=== PATIENT | female | born 1955 | race Caucasian/White ===

== ENCOUNTER → 2017-02-14 18:09 | Outpatient (CLI) | payer OTHER ==
[2016-03-22 13:46] VITALS: BMI 28.3
[~2017-02-14 18:09] MED LIST: ASPIRIN 81 MG E81 MG PO; CARTIA XT120 MG PO; CELEXA20 MG PO; CIPRO500 MG PO; DICLOFENAC SODI50 MG PO; DOXYCYCLINE HY100 M2 PO; FAMOTIDINE10 MG PO; IMDUR30 MG PO; ISOSORBIDE MONO60 M1 PO; LEVOTHROID75 MCG PO; LOW DOSE ASPIRI81 M1 PO; MOBIC7.5 MG PO; PLAVIX75 MG PO; PRAVACHOL40 MG PO; PROTONIX40 MG PO; RELAFEN500 MG PO; ZYRTEC10 MG PO
== END | disposition home or self-care (01) ==
LOC: D.MAMMO 01-31 14:00
DX: Z12.31 Encounter for screening mammogram for malignant neoplasm of breast (principal)

== ENCOUNTER → 2017-07-10 08:16 | Outpatient (CLI) | payer OTHER ==
[~2017-07-10] VITALS: Ht 149.9 cm; Wt 60.9 kg
--- NOTE | ~2017-07-10 | HEMODYNAMI ---
PATIENT:BARNEY KAUFMAN MEDICAL RECORD: [id number] : 53 LOCATION:[facility] ADMISSION DATE: 07/10/17 Generatedon:07/10/201710:45 Patient name: BARNEY KAUFMAN Patient #: [id number] SSN: : 1955 Date of study: 07/10/2017 Page: Of Hemodynamic Procedure Report Patient Data Patient Demographics Procedure consent was obtained First Name: BARNEY Gender: Female Last Name: MANDEEP : 1955 [facility] Initial: HOLLY Age: 62 year(s) Patient #: [id number] Race: Additional ID: [id number] Contact details Address: [address] [place] [address] State: [place] City: [place] Zip code: [address] Past Medical History Allergies Allergen Reaction Date Comments Reported Sulfa drugs 03/22/2016 Other allergy 07/10/2017 Sulfa, PCN Admission Admission Data Admission Date: 07/10/2017 Admission Time: 8:16 Height (in.): 52 BSA: 1.44 (m2) Height (cm.): 132.08 BMI: 35.88 (kg/m2) Weight (lbs.): 138 Weight (kg.): 62.6 Lab Results Lab Result Date: 07/10/2017 Lab Result Time: 0:00 Biochemistry Name Units Result Min Max BUN mg/dl 22 --(----)-* 7 18 Creatinine mg/dl 0.9 --(-*--)-- 0.6 1.3 CBC Name Units Result Min Max Hemoglobin g/dl 12.1 *-(----)-- 13.5 17.5 Procedure Procedure Types Cath Procedure Diagnostic Procedure Sedation Charges [facility] w/Coronaries PCI Procedure Coronary Stent Coronary Stent Initial PTCA PTCA Additional Procedure Description Procedure Date Procedure Date: 07/10/2017 Procedure Start Time: 10:17 Procedure End Time: 10:44 Procedure Staff Name Function Brien Wayne MD Performing Physician Dewayne Gamez RN Cable Tender Claudette RAMOS Scrub Logan Lora RT Monitor Procedure Data Cath Procedure Fluoroscopy Diagnostic fluoroscopy Total fluoroscopy Time: 7.2 time: 7.2 min min Diagnostic fluoroscopy Total fluoroscopy dose: 653 dose: 653 mGy mGy Entry Location Entry Primary Successful Side Size Upsize Upsize Entry Closure Harkins ccessful Closure Location (Fr) 1 (Fr) 2 (Fr) Remarks Device Remarks Radial Right 6 Fr Manual artery Short Compression Estimated blood loss: 10 ml Diagnostic catheters Device Type Used For End Catheter Placement DIAGNOSTIC El[place] 110cm 5 Procedure Fr catheter ([id number]) Procedure Medications Medication Administration Route Dosage 0.9% NaCl I.V. 100 ml/hr Oxygen NC 2 l/min Heparin Flush Bag added to field 2 bags (1000units/500ml NS) Lidocaine 2% added to field 20 Radial Cocktail added to field 1 syringe (Verapomil 2mg/Nitro 400mcg/Heparin 1500units) Versed I.V. 1 mg Fentanyl I.V. 25 mcg Fentanyl I.V. 25 mcg Radial Cocktail I.A. 1 syringe (Verapomil 2mg/Nitro 400mcg/Heparin 1500units) Heparin Bolus I.V. 4000 units Hemodynamics Rest BSA: 1.44 (m2) HGB: 12.1 (g/dl) O2 Consumption: Estimated: 136.7 (ml/min) O2 Con sumption indexed: Estimated:94.93 (ml/min/m) Heart Rate: 73 (bpm) Pressure Samples Time Site Value (mmHg) Purpose Heart Use Rate(bpm) 10:23 LV 69/1,2 Snapshot 93 Snapshots Pre Cath Intra NCS Post Cath Vital Signs Time Heart Resp SPO2 etCO2 NIBP (mmHg) Rhythm Pain Sedation Rate (ipm) (%) (mmHg) Status Level (bpm) 9:54:43 74 18 98 31.6 128/72(109) NSR 0 (11) 10(A) , No pain 9:58:55 83 18 98 30.1 135/76(99) NSR 0 (11) 10(A) , No pain 10:03:05 77 14 96 33.9 115/70(91) NSR 0 (11) 10(A) , No pain 10:07:14 73 12 96 33.9 111/64(82) NSR 0 (11) 10(A) , No pain 10:11:22 75 12 96 35.4 109/65(92) NSR 0 (11) 10(A) , No pain 10:15:30 71 13 96 35.4 108/65(86) NSR 0 (11) 10(A) , No pain 10:19:38 74 13 96 36.2 113/62(87) NSR 0 (11) 10(A) , No pain 10:23:48 89 15 94 34.6 100/59(72) NSR 0 (11) 9(A) , No pain 10:27:56 80 13 92 37.7 107/57(81) NSR 0 (11) 9(A) , No pain 10:32:02 78 12 94 38.5 112/71(93) NSR 0 (11) 9(A) , No pain 10:36:11 86 12 95 40 118/64(102) NSR 0 (11) 10(A) , No pain 10:40:19 83 13 95 38.5 116/74(98) NSR 0 (11) 10(A) , No pain 10:44:29 80 13 95 37.7 114/63(90) NSR 0 (11) 10(A) , No pain Medications Time Medication Route Dose Verified Delivered Reason Note s Effectiveness by by 9:50:54 0.9% NaCl I.V. 100 Jonathan Jonathan Per physician ml/hr Leoncio Fang RN, RN 9:51:10 Oxygen NC 2 l/min Jonathan Jonathan Per physician Leoncio Fang RN, RN 9:51:25 Heparin Flush added 2 bags Jonathan Jonathan used for Bag to Lorigan Leoncio procedure (1000units/500ml field GUERRA RN NS) 9:51:38 Lidocaine 2% added 20ml Jonathan Jonathan for local to vial Lorigan Lorigan anesthetic field CHARLIE GUERRA 9:53:47 Radial Cocktail added 1 Jonathan Jonathan used for (Verapomil to syringe Lorigan Lorigan procedure 2mg/Nitro field GUERRA RN 400mcg/Heparin 1500units) 10:15:17 Versed I.V. 1 mg Jonathan Jonathan for sedation Leoncio Fang RN, RN 10:15:27 Fentanyl I.V. 25 mcg Jonathan Jonathan for sedation Leoncio Fang RN, RN 10:18:27 Fentanyl I.V. 25 mcg Jonathan Jonathan for sedation Leoncio Fang RN RN 10:22:41 Radial Cocktail I.A. 1 Jonathan Tesfaye for (Verapomil syringe Leoncio Wayne MD vasodilation 2mg/Nitro RN 400mcg/Heparin 1500units) 10:27:57 Heparin Bolus I.V. 4000 Jonathan Castillo for units Leoncio Fang anticoagulation RN assurance senior manager insurance Log Time Note 9:43:15 Diagnostic Cath status Elective 9:43:28 Dewayne Gamez RN sent for patient. Start room use. 9:43:35 Time tracking: Regular hours 9:43:41 Plan of Care:Hemodynamics will remain stable., Cardiac rhythm will remain stable., Comfort level will be maintained., Respiratory function will remain adequate., Patient/ family verbilizes understanding of procedure., Procedure tolerated without complication., Recovers from procedure without complications.. 9:43:48 Patient received from Pre/Post Procedure Room to CCL 2 Alert and oriented. Tansferred to table in Supine position. 9:43:49 Warm blankets applied, and césar hugger turned on for patient comfort. 9:43:49 Correct patient and procedure confirmed by team. 9:43:51 Signed procedure consent form obtained from patient. 9:47:08 Patient Height : 52 inches 9:47:14 Patient Weight : 138 lbs 9:50:54 0.9% NaCl 100 ml/hr I.V. was administered by Jonathan Fang RN; Per physician; 9:51:10 Oxygen 2 l/min NC was administered by Jonathan Fang RN; Per physician; 9:51:25 Heparin Flush Bag (1000units/500ml NS) 2 bags added to field was administered by Jonathan Fang RN; used for procedure; 9:51:38 Lidocaine 2% 20ml vial added to field was administered by Jonathan Fang RN; for local anesthetic; 9:53:37 Vital chart was started 9:53:41 ECG and BP/O2 sat monitors applied to patient. 9:53:43 Baseline sample Acquired. 9:53:47 Radial Cocktail (Verapomil 2mg/Nitro 400mcg/Heparin 1500units) 1 syringe added to field was administered by Jonathan Fang RN; used for procedure; 9:53:49 Rhythm: sinus rhythm 9:53:51 Full Disclosure recording started 9:54:01 H&P Date Dictated: 07/04/2017 Within 30 days and on chart., H&P Addendum completed by physician on day of procedure. (MUST COMPLETE FOR ALL OUTPATIENTS). 9:54:03 Pre-procedure instructions explained to patient. 9:54:05 Family in waiting room. 9:54:07 Patient NPO since Midnight. 9:54:27 Patient allergic to Other allergySulfa, PCN 9:54:33 Is the patient allergic to Iodine/contrast media? No. 9:54:34 Was the patient premedicated? Yes 9:54:38 Is patient on blood thinner?Yes 9:54:41 ACC The patient was administered the following blood thiners within the last 24 hours: ACCPlavix 9:54:43 Patient diabetic? No. 9:54:48 Snore? Yes 9:54:50 Sleep apnea? No 9:55:03 Patient pain scale 0/10 ?. 9:55:13 IV patent on arrival in left forearm with 0.9% NaCl at O. 10:06:21 Right Radial & Right Groin area was prepped with chlora-prep and draped in sterile fashion 10:06:23 Alarms reviewed by R. N. 10:06:24 Sharps counted by scrub and verified by R.N. 10:06:47 Deviated septum? No 10:06:48 Opens mouth fully? Yes 10:06:50 Sticks out tongue? Yes 10:06:51 Airway obstruction? No ? 10:08:31 Lab Result : Creatinine 0.9 mg/dl 10:08:31 Lab Result : BUN 22 mg/dl 10:08:31 Lab Result : Hemoglobin 12.1 g/dl 10:10:52 Zero performed for pressure channel P1 10:11:17 Use device set Radial Dx or PCI 10:11:20 ACIST Syringe (10810) opened to sterile field. 10:11:20 Medline Cath Pack ([id number]) opened to sterile field. 10:11:22 Bag Decanter (2002) opened to sterile field. 10:11:24 SHEATH 6FR Slender ([id number]) opened to sterile field. 10:11:38 DIAGNOSTIC WIRE .035 260cm J wire (316878) opened to sterile field. 10:11:40 ACIST Hand Control (00864) opened to sterile field. 10:11:41 ACIST Manifold (07282) opened to sterile field. 10:11:42 Tegaderm 4 x 4 (1626W) opened to sterile field. 10:11:43 MBrace Wrist Support ([id number]) opened to sterile field. 10:14:29 Physician arrived 10::30 --------ALL STOP TIME OUT------ ::30 Final Timeout: patient, procedure, and site verified with staff and physician. All members of the team are in agreement. 10::33 Right Radial & Right Groin site verified by team. 10::37 Physical assessment completed. ASA score P 2 - A patient with mild systemic disease as per Brien Wayne MD. 10::43 Sedation plan: IV Moderate Sedation Medication:Versed, Fentanyl 10:15:17 Versed 1 mg I.V. was administered by Jonathan Fang RN; for sedation; 10:15:27 Fentanyl 25 mcg I.V. was administered by Jonathan Fang RN; for sedation; 10:16:29 Procedure started. 10:17:03 Local anesthetic to right radial artery with Lidocaine 2% by Brien Wayne MD.INITIAL ACCESS ONLY 10:18:27 Fentanyl 25 mcg I.V. was administered by Jonathan Fang RN; for sedation; 10:21:49 A 6 Fr Short sheath was inserted into the Right Radial artery 10:21:57 A DIAGNOSTIC Elgin 110cm 5 Fr catheter ([id number]) was advanced over the wire and used for Procedure. 10:22:41 Radial Cocktail (Verapomil 2mg/Nitro 400mcg/Heparin 1500units) 1 syringe I.A. was administered by Brien Wayne MD; for vasodilation; 10:23:20 LV hemodynamics recorded. 10:23:22 LV gram done using MCCULLOUGH 10:23:28 EF : 60 % 10:23:45 LCA angiography performed. 10:24:20 GUIDE 6FR XBLAD 3.5 catheter ([id number]) opened to sterile field. 10:24:22 INFLATOR Merit BasixCompak (QH0843) opened to sterile field. 10:24:29 RCA angiography performed. 10:25:42 Catheter removed. 10::43 Proceeding to intervention. 10:26:07 6 Fr XBLAD 3.5 guide catheter was inserted over the wire 10:26:29 CHOICE PT Extra Support 182cm wire ([id number]) opened to sterile field. 10:27:07 CHOICE wire advanced. 10:27:26 DIAGONAL BRANCH 10:27:33 Wire advanced across lesion. 10:27:57 Heparin Bolus 4000 units I.V. was administered by Jonathan Fang RN; for anticoagulation; 10:29:03 Inflation number: 1 A EUPHORA 2.5 x 15 Balloon ([id number]) was prepped and advanced across the 1st Diag, then inflated to 17 AGUSTÍN for 0:10 (min:sec). 10:29:39 Inflation number: 2 The EUPHORA 2.5 x 15 Balloon ([id number]) was reinflated across the 1st Diag, to 17 AGUSTÍN for 0:10 (min:sec). 10:30:52 Balloon removed over the wire. 10:30:56 Wire redirected to LAD. 10:31:33 Procedure type changed to Cath procedure, Diagnostic procedure, Sedation Charges, C, C w/Coronaries, PCI procedure, Coronary Stent, Coronary Stent Initial, PTCA, PTCA Additional 10:32:24 Inflation Number: 1 A MANNY RX 3.0 x 08 stent ([id number]) was prepped and advanced across the Prox LAD. The stent was deployed at 23 AGUSTÍN for 0:10 (min:sec). 10:32:54 Wire redirected to DIAGONAL. 10:33:13 Stent catheter was removed intact over wire. 10:33:16 Balloon re-inserted over wire. 10:34:39 Inflation number: 3 The EUPHORA 2.5 x 15 Balloon ([id number]) was reinflated across the 1st Diag, to 15 AGUSTÍN for 0:10 (min:sec). 10:35:50 Balloon removed over the wire. 10:35:56 Wire removed. 10:35:56 Guide catheter removed. 10:36:27 TR BAND Standard ([id number]) opened to sterile field. 10:36:45 Sheath removed intact; hemostasis achieved with Manual Compression to the Right Radial artery. 10:38:38 Procedure ended.(Physican Out) 10:41:49 Fluoroscopy time 07.20 minutes. 10:41:58 Fluoroscopy dose: 653 mGy 10:41:58 Flurop Dose total: 653 10:42:07 Sharps counted by scrub and verified by R.N. 10:42:18 Insertion/operative site no bleeding no hematoma. 10:42:25 Post right radial artery:stable 10:42:31 Post-procedure physical assessment completed. ASA score P 2 - A patient with mild systemic disease as per Brien Wyane MD. 10:42:38 Post procedure rhythm: sinus rhythm 10:42:42 Estimated blood loss: 10 ml 10:42:47 Post procedure instruction explained to patient.Patient verbalizes understanding. 10:42:48 Patient needs reinforcement of post procedure teaching. 10:44:17 Procedure and supply charges have been captured, reviewed, submitted and are correct. 10:44:19 Vital chart was stopped 10:44:20 See physician's report for complete and final results. 10:44:22 Report given to Pre/Post Procedure Room. 10:44:25 Patient transfered to Pre/Post Procedure Room with Stretcher. 10:44:28 Procedure ended. 10:44:28 Full Disclosure recording stopped 10:44:49 End room use (Document Last) Intervention Summary Intervention Notes Time ActionType Lesion and Equipment Used Action# Pressure Duration Attributes 10:29:03 Inflate 1st Diag EUPHORA 2.5 x 1 17 00:10 balloon 15 Balloon ([id number]) 10:29:39 Reinflate 1st Diag EUPHORA 2.5 x 2 17 00:10 balloon 15 Balloon ([id number]) 10:32:24 Place stent Prox LAD MANNY RX 3.0 x 1 23 00:10 08 stent ([id number]) 10:34:39 Reinflate 1st Diag EUPHORA 2.5 x 3 15 00:10 balloon 15 Balloon ([id number]) Device Usage Item Name Manufacture Quantity Catalog Number Hospital Part Current M inimal Lot# / Charge Number Stock Stock Serial# Code ACIST Syringe Acist 1 49732 360508 130130 389270 2 0 (85456) Medical Systems Inc Medline Cath Cardinal 1 [id number] 568966 71345 316916 5 Pack Health ([id number]) Bag Decanter Microtek 1 817589 56046 236961 5 () Medical Inc. SHEATH 6FR Terumo 1 [id number] 595281 122877 375519 4 0 Slender ([id number]) DIAGNOSTIC [facility] [place] 1 213020 219678 265756 507808 3 0 WIRE .035 260cm J wire (585869) ACIST Hand Acist 1 63198 561600 106708 668500 5 Control Medical (17666) Systems Inc ACIST Manifold Acist 1 82333 473043 640789 375224 5 (68532) Medical Systems Inc Tegaderm 4 x 4 3M 1 1626W 687584 774678 936517 5 (1626W) MBrace Wrist Advanced 1 140-0250-00 786423 91458 089326 5 Support Vascular ([id number]) Dynamics DIAGNOSTIC Terumo 1 40-9203 496256 894033 936881 5 [place] 110cm 5 Fr catheter (825205) GUIDE 6FR Cardinal 1 [id number] 279659 260721 732321 1 0 XBLAD 3.5 Health catheter (54914103) INFLATOR Merit Merit 1 ZH8953 100172 852309 833775 1 5 Fiducioso Advisors (QC7072) CHOICE PT [place] 1 [id number] 760016 703136 102173 5 Extra Support Scientific 182cm wire ([id number]) EUPHORA 2.5 x Medtronic 1 [id number] 715034 116214 226162 5 15 Balloon ([id number]) MANNY RX 3.0 x Medtronic 1 [id number] 337629 2386363 382764 5 [id number] 08 stent ([id number]) TR BAND Terumo 1 [id number] 281299 214557 129313 4 0 Standard ([id number]) Signature Audit Allen Stage Time Signature Unsigned Intra-Procedure 07/10/2017 Logan Lora 10:45:09 AM RT(R) (CV) Signatures Monitor : Logan Lora RT Signature : Date : Time : [facility] [address] [place] [address]
--- NOTE | ~2017-07-10 | OP ---
PATIENT NAME: BARNEY KAUFMAN MEDICAL RECORD: [id number] :53 LOCATION:D[facility] ADMISSION DATE: SURGEON: DENIS DAVIS MD DATE OF OPERATION: 07/10/2017 PROCEDURES: 1. PTCA stent LAD. 2. PTCA LAD diagonal. 3. Left heart catheterization. 4. Selective coronary angiography. 5. Left ventriculogram. INDICATION: Angina and coronary artery disease. PROCEDURE IN DETAIL: After informed consent was obtained and after detailed explanation of risks, benefits as well as alternative therapies, the patient elected to proceed with angiogram and angioplasty. The right radial area was prepped and draped in normal sterile fashion. The right radial artery was cannulated via modified Seldinger technique with placement of 6-Stateless sheath. All catheters exchanged through this sheath. FINDINGS: Left ventriculogram was performed in standard 30-degree MCCULLOUGH view, reveals good cardiac wall motion throughout all segments. Overall ejection fraction estimated 60%. SELECTIVE CORONARY ANGIOGRAPHY: 1. Left main has no significant angiographic disease. 2. Left anterior descending has previously placed stent in the LAD and diagonal. The diagonal has 95% in-stent restenosis, the LAD 80% in-stent restenosis. 3. Left circumflex shows mild irregularities, but no flow-limiting stenosis. 4. Right coronary artery has mild irregularities, but no flow-limiting stenosis. PTCA STENT OF THE LAD: The stent used is a 3.0 x 9 mm [place]. The diagonal was addressed with a 2.5 balloon. Result was 0% residual throughout. OVERALL IMPRESSION: Successful percutaneous transluminal coronary angioplasty stent of the left anterior descending going from 80% initial stenosis to 0% residual. TRANSINT:[id number] Voice Confirmation ID: [id number] DOCUMENT ID: [id number] DENIS DAVIS MD at 1202 CC: [id number] DICTATION DATE: 07/10/17 1040 SENIOR UI DEVELOPER: 07/10/17 1105 DEP CLI 07/10/[address] [address]
[~2017-07-10 08:16] MED LIST changes: +CO Q-10200 MG PO; +NITROSTAT0.4 MG SL; +PRAVACHOL80 MG PO
[2017-07-10 08:43] VITALS: BP 114/66; Ht 149.9 cm; Wt 60.9 kg
[2017-07-10 09:39] LABS: BASOPHILS 0.6 % (0-2); EOSINOPHILS 4.3 % (0-7); HEMATOCRIT 36.7 % (36.0-48.0); HEMOGLOBIN 12.1 g/dL (12-16); IMMATURE GRANULOCYTES 0.6 % (0-5); MCH 26.8 pg (26.0-34.0); MCV 81.4 fL (80.0-100.0); MEAN PLATELET VOLUME 9.1 fL (7.4-10.4); MONOCYTES 9.6 % (2-11); NEUTROPHILS 47.9 % (40-80); PLATELET COUNT 220 10x3/uL (130-400); RBC 4.51 10x6/uL (4.00-5.40); RDW 12.8 % (11.5-14.5); WBC 6.8 10x3/uL (4.8-10.8)
[2017-07-10 09:48] LABS: ANION GAP 14.8 mmol/L (8-16); CALCIUM 9.4 mg/dL (8.5-10.1); CARBON DIOXIDE 22.8 mmol/L (21.0-32.0); CREATININE - SERUM 0.9 mg/dL (0.6-1.3); POTASSIUM - SERUM 3.6 mmol/L (3.5-5.1)
== END | disposition home or self-care (01) ==
LOC: D.CATH 08:16
PROVIDERS: Internal Medicine Interventional Cardiology
DX: I25.119 Atherosclerotic heart disease of native coronary artery with unspecified angina pectoris (principal); I10 Essential (primary) hypertension; R55 Syncope and collapse; Z01.812 Encounter for preprocedural laboratory examination

== ENCOUNTER 2017-07-13 08:11 | Emergency (ER) | payer OTHER ==
[2017-07-10 08:43] VITALS: BMI 27.1
[2017-07-13 08:48] LABS: BASOPHILS 0.4 % (0-2); EOSINOPHILS 3.9 % (0-7); HEMATOCRIT 37.6 % (36.0-48.0); HEMOGLOBIN 12.6 g/dL (12-16); IMMATURE GRANULOCYTES 0.4 % (0-5); LYMPHOCYTES 39.4 % (15-50); MCHC 33.5 g/dL (31.0-37.0); MCV 80.5 fL (80.0-100.0); MONOCYTES 9.5 % (2-11); NEUTROPHILS 46.4 % (40-80); PLATELET COUNT 226 10x3/uL (130-400); RBC 4.67 10x6/uL (4.00-5.40); RDW 12.8 % (11.5-14.5); WBC 7.4 10x3/uL (4.8-10.8)
[2017-07-13 09:25] LABS: ALBUMIN 3.6 g/dL (3.4-5.0); ALKALINE PHOSPHATASE 71 U/L (46-116); ALT (SGPT) 24 U/L (10-68); CALC OSMOLALITY 283 mosm/kg (275-300); CALCIUM 8.7 mg/dL (8.5-10.1); CARBON DIOXIDE 22.6 mmol/L (21.0-32.0); CHLORIDE - SERUM 107 mmol/L (98-107); CREATININE - SERUM 0.8 mg/dL (0.6-1.3); GLUCOSE 116 mg/dL (74-106); POTASSIUM - SERUM 3.7 mmol/L (3.5-5.1); SODIUM 141 mmol/L (136-145); UREA NITROGEN 19 mg/dL (7-18); eGFR NON AFRICAN AMERICAN 77 mL/min (90-120)
[2017-07-13 09:36] LABS: CHOL - HDL RATIO 3.4 ratio (2.3-4.1); CHOLESTEROL, TOTAL 157 mg/dL (0-200); CKMB 0.7 U/L (0.0-3.6); CREATINE KINASE 57 UL (21-215); HDL CHOLESTEROL 46 mg/dL (32-96); LDL CHOLESTEROL 82 mg/dL (0-100); LDL-HDL RATIO 1.8 ratio (1.5-3.5); TRIGLYCERIDE 147 mg/dL (30-200); TROPONIN-I < 0.017 ng/mL (0.000-0.060)
== END 2017-07-13 13:55 | disposition home or self-care (01) ==
LOC: D.ER 08:11
PROVIDERS: Emergency Medicine
DX: R07.9 Chest pain, unspecified (principal)

== ENCOUNTER 2017-08-20 21:17 | Emergency (ER) | payer OTHER ==
[2017-07-10 08:43] VITALS: BMI 27.1
[2017-08-20 21:53] LABS: APPEARANCE CLOUDY (CLEAR); BILIRUBIN NEGATIVE (NEGATIVE); COLOR YELLOW (YELLOW); GLUCOSE NEGATIVE (NEGATIVE); KETONE NEGATIVE (NEGATIVE); NITRITE POSITIVE (NEGATIVE); PROTEIN NEGATIVE (NEGATIVE); SPECIFIC GRAVITY 1.015 (1.005-1.020); UROBILINOGEN NORMAL (NORMAL)
[2017-08-20 21:56] LABS: BACTERIA MANY /hpf (NONE SEEN); WHITE CELLS - URINE 25-50 /hpf (0-5)
[2017-08-20 22:29] LABS: BASOPHILS 0.2 % (0-2); EOSINOPHILS 1.1 % (0-7); HEMATOCRIT 34.7 % (36.0-48.0); HEMOGLOBIN 11.8 g/dL (12-16); IMMATURE GRANULOCYTES 0.2 % (0-5); LYMPHOCYTES 27.1 % (15-50); MCH 27.1 pg (26.0-34.0); MCV 79.8 fL (80.0-100.0); MEAN PLATELET VOLUME 9.1 fL (7.4-10.4); MONOCYTES 11.5 % (2-11); NEUTROPHILS 59.9 % (40-80); PLATELET COUNT 206 10x3/uL (130-400); RBC 4.35 10x6/uL (4.00-5.40); RDW 13.4 % (11.5-14.5); WBC 9.4 10x3/uL (4.8-10.8)
[2017-08-20 22:40] LABS: ALBUMIN 3.6 g/dL (3.4-5.0); ANION GAP 15.7 mmol/L (8-16); BILIRUBIN - TOTAL 0.3 mg/dL (0.2-1.3); CARBON DIOXIDE 22.6 mmol/L (21.0-32.0); POTASSIUM - SERUM 3.3 mmol/L (3.5-5.1); PROTEIN - SERUM 6.8 g/dL (6.4-8.2)
== END 2017-08-20 23:00 | disposition home or self-care (01) ==
LOC: D.ER 21:17
PROVIDERS: Emergency Medicine
DX: N39.0 Urinary tract infection, site not specified (principal); I25.10 Atherosclerotic heart disease of native coronary artery without angina pectoris; E03.9 Hypothyroidism, unspecified; R00.0 Tachycardia, unspecified

== ENCOUNTER 2017-11-12 13:39 | Emergency (ER) | payer OTHER ==
[~2017-11-12] VITALS: Ht 149.9 cm; Wt 68.2 kg
[2017-11-12 13:50] VITALS: Ht 149.9 cm; Wt 68.2 kg
[2017-11-12 14:11] LABS: BASOPHILS 0.5 % (0-2); EOSINOPHILS 3.2 % (0-7); HEMATOCRIT 37.1 % (36.0-48.0); HEMOGLOBIN 12.4 g/dL (12-16); IMMATURE GRANULOCYTES 0.3 % (0-5); LYMPHOCYTES 40.3 % (15-50); MCH 26.7 pg (26.0-34.0); MCHC 33.4 g/dL (31.0-37.0); MCV 79.8 fL (80.0-100.0); MEAN PLATELET VOLUME 9.1 fL (7.4-10.4); MONOCYTES 13.4 % (2-11); NEUTROPHILS 42.3 % (40-80); PLATELET COUNT 200 10x3/uL (130-400); RBC 4.65 10x6/uL (4.00-5.40); WBC 5.9 10x3/uL (4.8-10.8)
[2017-11-12 14:14] LABS: APPEARANCE SLT CLOUDY (CLEAR); COLOR YELLOW (YELLOW); NITRITE POSITIVE (NEGATIVE); SPECIFIC GRAVITY 1.015 (1.005-1.020)
[2017-11-12 14:15] LABS: BACTERIA MANY /hpf (NONE SEEN); BILIRUBIN NEGATIVE (NEGATIVE); EPITHELIAL CELLS 0-5 /hpf (0-5); GLUCOSE NEGATIVE (NEGATIVE); KETONE NEGATIVE (NEGATIVE); PROTEIN NEGATIVE (NEGATIVE); RED CELLS - URINE 0-5 /hpf (0-5); UROBILINOGEN NORMAL (NORMAL); WHITE CELLS - URINE 0-5 /hpf (0-5)
[2017-11-12 14:25] LABS: ALBUMIN 3.6 g/dL (3.4-5.0); ALKALINE PHOSPHATASE 111 U/L (46-116); ALT (SGPT) 34 U/L (10-68); BILIRUBIN - TOTAL 0.24 mg/dL (0.2-1.3); CALC OSMOLALITY 282 mosm/kg (275-300); CALCIUM 8.9 mg/dL (8.5-10.1); CARBON DIOXIDE 26.1 mmol/L (21.0-32.0); CHLORIDE - SERUM 106 mmol/L (98-107); CREATININE - SERUM 0.7 mg/dL (0.6-1.3); GLUCOSE 147 mg/dL (74-106); POTASSIUM - SERUM 3.6 mmol/L (3.5-5.1); PROTEIN - SERUM 7.7 g/dL (6.4-8.2); SODIUM 141 mmol/L (136-145); UREA NITROGEN 11 mg/dL (7-18); eGFR NON AFRICAN AMERICAN 90 mL/min (90-120)
[2017-11-12] MEDS ORDERED: DIFLUCAN100 MG PO (16:15)
[2017-11-12 17:04] VITALS: BP 116/87
== END 2017-11-12 17:05 | disposition home or self-care (01) ==
LOC: D.ER 13:39
PROVIDERS: Family Medicine
DX: R53.81 Other malaise (principal); R53.83 Other fatigue

== ENCOUNTER → 2018-10-09 08:48 | Outpatient (CLI) | payer OTHER ==
[2017-11-12 13:50] VITALS: BMI 30.3
[~2018-10-09 08:48] MED LIST changes: +DIFLUCAN100 MG PO
--- NOTE | 2018-10-12 09:40 | ST ---
PATIENT:BARNEY KAUFMAN MEDICAL RECORD: [id number] SEX: F LOCATION:[facility] ORDER #: ADMISSION DATE: 10/09/18 AGE OF PATIENT: 63 REFERRING PHYSICIAN: INTERPRETING PHYSICIAN: DENIS DAVIS MD DATE OF SERVICE: 10/09/2018 INDICATION: Angina, coronary artery disease and hypertension. TECHNIQUE: She was exercised on standard Lexiscan protocol with 33 mCi of sestamibi injected at peak stress. A 11 mCi were used previously for rest images. FINDINGS: Gated SPECT reveals preserved ejection fraction at 74% with good wall motion and thickening and brightening throughout all segments. SPECT imaging Cardiolite was used as myocardial fusion agent. There is homogeneous uptake throughout all segments at rest and stress with no evidence of inducible ischemia or previous infarction. OVERALL IMPRESSION: 1. This is a normal nuclear stress test with no evidence of inducible ischemia or previous infarction. 2. Gated SPECT reveals a preserved ejection fraction at 74%. In this patient with ongoing symptomatology, the current scan does not suggest the presence of hemodynamically significant coronary artery disease. Evaluate noncardiac etiology of chest pain. TRANSINT:[id number] Voice Confirmation ID: [id number] DOCUMENT ID: [id number] DENIS DAVIS MD at 0940 CC: RUIZ ALMANZAR [id number] DICTATION DATE: 10/09/18 1653 COMPUTER BOOKKEEPER: 10/10/18 0409 DEP CLI 10/09/18 [facility] [address] [place] [address]
== END | disposition home or self-care (01) ==
LOC: D.HCCARDIO 08:48
PROVIDERS: ATTEND Internal Medicine Interventional Cardiology
DX: I25.10 Atherosclerotic heart disease of native coronary artery without angina pectoris (principal)

== ENCOUNTER 2018-12-09 09:11 | Emergency (ER) | payer OTHER ==
[~2018-12-09] VITALS: Ht 149.9 cm; Wt 63.6 kg
[2018-12-09 09:17] VITALS: Ht 149.9 cm; Wt 63.6 kg
[2018-12-09 09:42] LABS: BASOPHILS 0.4 % (0-2); EOSINOPHILS 3.9 % (0-7); HEMATOCRIT 37.1 % (36.0-48.0); HEMOGLOBIN 12.9 g/dL (12-16); IMMATURE GRANULOCYTES 0.3 % (0-5); LYMPHOCYTES 47.2 % (15-50); MCH 27.3 pg (26.0-34.0); MCHC 34.8 g/dL (31.0-37.0); MCV 78.4 fL (80.0-100.0); MEAN PLATELET VOLUME 8.8 fL (7.4-10.4); MONOCYTES 8.6 % (2-11); NEUTROPHILS 39.6 % (40-80); PLATELET COUNT 201 10x3/uL (130-400); RBC 4.73 10x6/uL (4.00-5.40); RDW 12.9 % (11.5-14.5)
[2018-12-09 09:54] LABS: APTT 23.6 SECONDS (22.8-39.4); INR 0.96 (0.85-1.17); PROTIME 12.3 SECONDS (11.6-15.0)
[2018-12-09 10:08] LABS: ALBUMIN 3.9 g/dL (3.4-5.0); ALKALINE PHOSPHATASE 80 U/L (46-116); ALT (SGPT) 11 U/L (10-68); BILIRUBIN - TOTAL 0.41 mg/dL (0.2-1.3); CALC OSMOLALITY 282 mosm/kg (275-300); CALCIUM 9.3 mg/dL (8.5-10.1); CARBON DIOXIDE 22.4 mmol/L (21.0-32.0); CHLORIDE - SERUM 107 mmol/L (98-107); CREATININE - SERUM 0.9 mg/dL (0.6-1.3); GLUCOSE 113 mg/dL (74-106); POTASSIUM - SERUM 3.8 mmol/L (3.5-5.1); PROTEIN - SERUM 7.2 g/dL (6.4-8.2); SODIUM 141 mmol/L (136-145); UREA NITROGEN 16 mg/dL (7-18); eGFR NON AFRICAN AMERICAN 67 mL/min (90-120)
[2018-12-09 10:19] LABS: CKMB 0.5 U/L (0.0-3.6); CREATINE KINASE 64 UL (21-215)
[2018-12-09 10:20] LABS: TROPONIN-I < 0.017 ng/mL (0.000-0.060)
[2018-12-09] MEDS ORDERED: HYDROCODONE-A1 UDTA2 PO (11:25)
[2018-12-09 11:51] VITALS: BP 117/60
== END 2018-12-09 11:53 | disposition home or self-care (01) ==
LOC: D.ER 09:11
PROVIDERS: Emergency Medicine
DX: R07.89 Other chest pain (principal); R09.1 Pleurisy

== ENCOUNTER 2019-09-10 12:31 | Observation (INO) | payer MEDICARE ==
[~2019-09-10] VITALS: Ht 149.9 cm; Wt 60.5 kg
--- NOTE | ~2019-09-10 | EC ---
PATIENT:BARNEY KAUFMAN DATE OF SERVICE: 09/10/19 SEX: F MEDICAL RECORD: [id number] DATE OF : 53 LOCATION:D.M2 D.211 AGE OF PATIENT: 64 ADMISSION DATE: 09/10/19 REFERRING PHYSICIAN: INTERPRETING PHYSICIAN: SIMÓN JUAREZ MD ECHOCARDIOGRAM REPORT ECHO CHARGES 4 ECHO COMPLETE Date: 09/11/19 CLINICAL DIAGNOSIS: DYSPNEA/CAD ECHOCARDIOGRAPHIC MEASUREMENTS (adult normal given) AC root (d.<3.7cm) 2.6 cm LV Septum d (<1.2 cm> 1.1 cm Valve Excursion 1.5 cm LV Septum (systole) 1.2 cm Left Atria (s.<4.0cm> 3.2 cm LVPW d(<1.2cm) 1.2 cm RV (d.<2.3cm) 2.6 cm LVPW (sytole) 1.3 cm LV diastole(<5.6CM) 4.9 cm MV E-F(>70mm/sec) cm LV systole 3.4 cm LVOT Diameter 1.4 cm MV exc.(>10mm) 1.4 cm Est.ejection fraction (50-75%) % DOPPLER: LVIT cm/sec A 73.0 cm/sec E 54.0 cm/sec LA cm/sec RVSP 33 mmHg LVOT 76 cm/sec AOP1/2T m/s Asc. Ao 115 cm/sec RVOT 49 cm/sec RA cm/sec PA 108 cm/sec AV Gradient Peak 5.33 mmHg AV Mean 2.58 mmHg AV Area 1.5 cm MV Gradient Peak 3.23 mmHg MV Mean 1.39 mmHg MV Area cm COMMENTS: Textile Conversion Manager: 2 LEANDRA YLLES Making Machine Catcher: 3 Dr. Zee TAPE# PACS Pericardial Effusion N DATE OF SERVICE: Adequate 2D, color flow imaging, spectral Doppler, and M-Mode No LVH. LV internal dimension is normal. Wall motion is normal. EF is greater than or equal to 55%. Aortic valve is tricuspid. No evidence of stenosis by Doppler interrogation. Left atrium is normal. Mitral valve shows no prolapse. Trace MR. Right-sided chambers are grossly normal. Trace TR. TRANSINT:[id number] Voice Confirmation ID: [id number] DOCUMENT ID: [id number] ECHOCARDIOGRAM REPORT [id number] BARNEY KAUFMAN GREGORY A MD CC: [id number] DICTATION DATE: 09/12/19 0845 STRAIGHT KNIFE CUTTER MACHINE: 09/12/19 1519 DIS IN 09/11/19 [place] [id number] [place] [address]
--- NOTE | ~2019-09-10 | HEMODYNAMI ---
PATIENT:BARNEY KAUFMAN MEDICAL RECORD: [id number] : 53 LOCATION:[facility] D.2115 ADMISSION DATE: 09/10/19 Generatedon:09/11/201911:33 Patient name: BARNEY KAUFMAN Patient #: [id number] SSN: [id number] : 1955 Date of study: 09/11/2019 Page: Of Hemodynamic Procedure Report Patient Data Patient Demographics Procedure consent was obtained First Name: BARNEY Gender: Female Last Name: MANDEEP : 1955 [facility] Initial: HOLLY Age: 64 year(s) Patient #: [id number] Race: SSN: [id number] Additional ID: [id number] Contact details [address]: [address] [place] [address] State: [place] City: [place] Zip code: [address] Past Medical History Allergies Allergen Reaction Date Comments Reported Sulfa drugs 03/22/2016 Other allergy 07/10/2017 Sulfa, PCN Other allergy 09/11/2019 PCN, SULFA, BACTRIM, CIPRO Admission Admission Data Admission Date: 09/10/2019 Admission Time: 12:39 Arrival Date: 09/11/2019 Arrival Time: 0:00 Admit Source: Other Insurance Payor: Medicare Room #: D.2115 [facility] #: [id number] Height (in.): 59 BSA: 1.11 (m2) Height (cm.): 149.86 BMI: 12.21 (kg/m2) Weight (lbs.): 60.45 Weight (kg.): 27.42 Lab Results Lab Result Date: 09/11/2019 Lab Result Time: 0:00 Biochemistry Name Units Result Min Max BUN mg/dl 12 --(-*--)-- 7 18 CK-MB ng/ml 0.7 --(*---)-- 0 3.6 Creatinine mg/dl 0.8 --(-*--)-- 0.6 1.3 eGFR ml/min 76.99786 *-(----)-- 90 120 NONAFRICAN Troponin l ng/ml 0.017 --(-*--)-- 0 0.06 CBC Name Units Result Min Max Hematocrit % 41.2 -*(----)-- 42 54 Hemoglobin g/dl 13.5 --(*---)-- 13.5 17.5 Procedure Procedure Types Cath Procedure Diagnostic Procedure [facility] w/Coronaries Sedation Charges Moderate Sedation up to 15 minutes PCI Procedure Coronary Stent Coronary Stent Initial Hemochron ACT Test Procedure Description Procedure Date Procedure Date: 09/11/2019 Procedure Start Time: 11:12 Procedure End Time: 11:29 Procedure Staff Name Function Edouard Ulloa MD Performing Physician Bonnie Mitchell RT Monitor Claudette Norwood RT Scrub Jesse Malone RN Nurse Procedure Data Cath Procedure Fluoroscopy Diagnostic fluoroscopy Total fluoroscopy Time: 2.9 time: 2.9 min min Diagnostic fluoroscopy Total fluoroscopy dose: 284 dose: 284 mGy mGy Contrast Material Contrast Material Type Amount (ml) Isovue 370 76 Entry Location Entry Primary Successful Side Size Upsize Upsize Entry Closure Succes sful Closure Location (Fr) 1 (Fr) 2 (Fr) Remarks Device Remarks Femoral Right 5 Fr 6 Fr Exoseal artery Short Estimated blood loss: 10 ml Diagnostic catheters Device Type Used For End Catheter Placement MULTIPACK JL 4.0 5Fr Procedure catheter MULTIPACK 3DRC 5Fr Procedure catheter MULTIPACK Pigtail 5 Fr Procedure catheter Procedure Complications No complications Procedure Medications Medication Administration Route Dosage Oxygen etCO2 Nasal cannula 2 l/min Lidocaine 2% added to field 20 Heparin Flush Bag added to field 2 bags (1000units/500ml NS) 0.9% NaCl I.V. 100 ml/hr Versed I.V. 1 mg Fentanyl I.V. 50 mcg Heparin Bolus I.V. 4000 units Atropine I.V. 0.5 mg Hemodynamics Rest BSA: 1.11 (m2) HGB: 13.5 (g/dl) O2 Consumption: Estimated: 103.39 (ml/min) O2 Co nsumption indexed: Estimated:93.14 (ml/min/m) Heart Rate: 69 (bpm) Pressure Samples Time Site Value (mmHg) Purpose Heart Use Rate(bpm) 11:18 LV 112/-10,19 Snapshot 79 11:18 AO 122/64(91) Pullback 77 11:18 LV 113/9,20 Pullback 77 Gradients Valve Time Site 1 Site 2 Mean SEP/DFP Peak To Heart Use (mmHg) (sec/min) Peak Rate (mmHg) (bpm) Aortic 11:18 LV AO 0 12 0 77 113/9,20 122/64(91) Calculations Valve P-P Mean Valve Index Valve Source Name Gradient Area Flow (cm2) Aortic 0 0 0 0 Snapshots Pre Cath Intra NCS Post Cath Vital Signs Time Heart Resp SPO2 etCO2 NIBP (mmHg) Rhythm Pain Sedation Rate (ipm) (%) (mmHg) Status Level (bpm) 11:04:00 69 22 99 27 No Cuff NSR 0 (11) 10(A) , No pain 11:05:00 74 15 95 24.7 115/60(0) NSR 0 (11) 10(A) , No pain 11:10:40 78 16 94 30 124/66(91) NSR 0 (11) 9(A) , No pain 11:15:50 79 14 96 31.5 110/60(79) NSR 0 (11) 9(A) , No pain 11:20:15 53 36 100 15 67/36(54) NSR 0 (11) 9(A) , No pain 11:26:13 91 13 94 0 141/80(111) NSR 0 (11) 9(A) , No pain 11:30:27 92 11 96 28.5 116/70(95) NSR 0 (11) 10(A) , No pain Medications Time Medication Route Dose Verified Delivered Reason Notes Effectiveness by by 11:04:32 Oxygen etCO2 2 Edouard Molina used for Nasal l/min St Felipe Malone RN procedure cannula 11:04:40 Lidocaine 2% added 20ml Edouard Nunn for local to vial [facility] anesthetic field MD DANGELO 11:04:46 Heparin Flush added 2 Edouard Nunn used for Bag to bags [facility] procedure (1000units/500ml field MD DANGELO NS) 11:04:55 0.9% NaCl I.V. 100 Edouard Molina Per physician ml/hr St Felipe Malone RN, MD 11:07:05 Versed I.V. 1 mg Edouard Molina for sedation St Felipe Malone RN, MD 11:07:10 Fentanyl I.V. 50 Edouard Molina for sedation mcg St Felipe Malone RN, MD 11:21:08 Heparin Bolus I.V. 4000 Edouard Molina for verif ied units St Felipe Malone RN anticoagulation with dr MD noel 11:22:57 Atropine I.V. 0.5 Edouard Molina For bradycardia mg St Felipe Malone RN, MD Procedure Log Time Note 10:33:18 Informed consent obtained and on chart 10:34:15 Lab Result : Troponin l 0.017 ng/ml 10:34:15 Lab Result : eGFR NONAFRICAN 76.26944 ml/min 10:34:15 Lab Result : CK-MB 0.7 ng/ml 10:34:15 Lab Result : BUN 12 mg/dl 10:34:15 Lab Result : Creatinine 0.8 mg/dl 10:34:15 Lab Result : Hematocrit 41.2 % 10:34:15 Lab Result : Hemoglobin 13.5 g/dl 10:34:19 Arrival Date: 09/11/2019 12:00:00 AM 10:34:20 Admit Source: Other 10:34:28 Insurance Payor : Medicare 10:34:46 Patient Height : 59 inches 10:34:53 Patient Weight : 60.45 lbs 10:36:06 ACC Patient presents with Stable Angina CCS Anginal Class 2--Slight limitation of ordinary activity. 10:36:12 Procedure Status Urgent Heart Cath (IP). 10:36:14 Time tracking: Regular hours (M-F 7:00 - 5:00) 10:36:19 Plan of Care:Hemodynamics will remain stable., Cardiac rhythm will remain stable., Comfort level will be maintained., Respiratory function will remain adequate., Patient/ family verbilizes understanding of procedure., Procedure tolerated without complication., Recovers from procedure without complications.. 10:36:32 H&P Date Dictated: 09/10/2019 Within 30 days and on chart.. 10:36:33 Pre-procedure instructions explained to patient. 10:36:33 Pre-op teaching completed and patient verbalized understanding. 10:36:35 Family unavailable. 10:36:37 Patient NPO since Midnight. 10:37:09 Patient allergic to Other allergyPCN, SULFA, BACTRIM, CIPRO 10:37:18 Lab results completed and on chart. 10:37:21 Stress Test: no; N/A ? 10:37:23 Alarms reviewed by R. N. 10:37:23 Sharps counted by scrub and verified by R.N. 10:38:05 Diagnostic Cath Status : Urgent 10:39:42 Risk of Mortality: 2.1 10:39:45 Risk of blood transfusion: 2.4 10:39:48 Risk of CASSANDRA: 2.3 10:44:11 Claudette Norwood RT(R) sent for patient. Start room use. 10:49:55 Patient received from Med II to CCL 1 Alert and oriented. Tansferred to table in Supine position. 10:50:07 Warm blankets applied, and césar hugger turned on for patient comfort. 10:50:07 Correct patient and procedure confirmed by team. 10:50:08 ECG and BP/O2 sat monitors applied to patient. 10:50:14 Was the patient premedicated? No 10:50:16 Is the patient allergic to Iodine/contrast media? No. 10:50:18 Is patient on blood thinner?Yes 10:51:28 ACC The patient was administered the following blood thiners within the last 24 hours: ACCPlavix 10:51:31 Patient diabetic? No. 10:51:34 If diabetic: On Metformin? N/A 10:51:39 Patient not . Patient is over age 55. 10:51:40 ----Pre-sedation anethsthesia assessment.---- 10:51:45 Previous problem with sedation/anesthesia? No ? 11:03:06 Snore? Yes 11:03:08 Sleep apnea? Unknown 11:03:09 Deviated septum? No 11:03:10 Opens mouth fully? Yes 11:03:11 Vital chart was started 11:03:11 Sticks out tongue? Yes 11:03:14 Airway obstruction? No ? 11:03:16 Dentures? No ? 11:03:20 Pre procedure: right dorsailis pedis pulse 1+ Palpable, but thready & weak; easily obliterated 11:03:22 Modified Leo's test Ulnar > 7 seconds. 11:03:24 Patient pain scale 0/10 ?. 11:03:34 IV patent on arrival in left antecubital with 0.9% NaCl at KVO. 11:03:40 Right groin area was prepped with chlora-prep and draped in sterile fashion 11:03:59 Baseline sample Acquired. 11:04:01 Full Disclosure recording started 11:04:06 Rhythm: sinus rhythm 11:04:14 Use device set Femoral Dx 11:04:16 ACIST Syringe (99868) opened to sterile field. 11:04:16 Bag Decanter (2002S) opened to sterile field. 11:04:17 Medline Cath Pack ([id number]) opened to sterile field. 11:04:18 ACIST Hand Control (78963) opened to sterile field. 11:04:19 ACIST Manifold (36767) opened to sterile field. 11:04:19 DIAGNOSTIC Multipack 5Fr catheter set ([id number]) opened to sterile field. 11:04:21 SHEATH 5FR [place] (YEL493) opened to sterile field. 11:04:21 EMERALD Guide Wire (514-732) opened to sterile field. 11:04:32 Oxygen 2 l/min etCO2 Nasal cannula was administered by eJsse Malone RN; used for procedure; Verbal order read back and verified. 11:04:40 Lidocaine 2% 20ml vial added to field was administered by Edouard Ulloa MD; for local anesthetic; Verbal order read back and verified. 11:04:46 Heparin Flush Bag (1000units/500ml NS) 2 bags added to field was administered by Edouard Ulloa MD; used for procedure; Verbal order read back and verified. 11:04:55 0.9% NaCl 100 ml/hr I.V. was administered by Jesse Malone RN; Per physician; Verbal order read back and verified. 11:05:43 --------ALL STOP TIME OUT------ 11:05:43 Final Timeout: patient, procedure, and site verified with staff and physician. All members of the team are in agreement. 11:05:45 Right groin site verified by team. 11:05:49 Fire Safety Assessment: A--An alcohol-based skin anteseptic being used preoperatively., C--Open oxygen or nitrous oxide is being used., D--An ESU, laser, or fiber-optic light is being used. 11:05:52 Physical assessment completed. ASA score P 2 - A patient with mild systemic disease as per Edouard Ulloa MD. 11:05:55 2) 60-89 Mildly reduced kidney function, and other findings (as for stage 1) point to kidney disease. 11:05:59 Maximum allowable contrast dose (3.7 X eGFR X 0.75)211 ml. 11:06:03 Sedation plan: IV Moderate Sedation Medication:Versed, Fentanyl 11:07:05 Versed 1 mg I.V. was administered by Jesse Malone RN; for sedation; Verbal order read back and verified. 11:07:10 Fentanyl 50 mcg I.V. was administered by Jesse Malone RN; for sedation; Verbal order read back and verified. 11:10:12 CALLED FAMILY TO NOTIFY OF START OF PROCEDURE X2 UNSUCCESSFUL. 11:11:17 Procedure started. 11:12:22 Attempted to call emergency contact Fatuma, no answer. 11:12:25 Local anesthetic to right femoral artery with Lidocaine 2% by Edouard Ulloa MD.INITIAL ACCESS ONLY 11:13:29 A 5 Fr sheath was inserted into the Right Femoral artery 11:14:35 A MULTIPACK JL 4.0 5Fr catheter was advanced over the wire and used for Procedure. 11:14:39 LCA angiography performed. 11:14:42 Injector settings: Ml/sec: 3, Volume: 6, 11:15:30 Catheter removed. 11:15:36 A MULTIPACK 3DRC 5Fr catheter was advanced over the wire and used for Procedure. 11:16:19 Injector settings: Ml/sec: 3, Volume: 6, 11:16:48 ACCDominant side:Right 11:16:50 Catheter removed. 11:16:58 A MULTIPACK Pigtail 5 Fr catheter was advanced over the wire and used for Procedure. 11:17:31 LV gram done using MCCULLOUGH 11:18:04 LV hemodynamics recorded. 11:18:14 EF : 55 % 11:18:31 Catheter removed. 11:18:32 Proceeding to intervention. 11:18:[address] PCI 11:18:41 INFLATOR Merit BasixCompak (PU8023) opened to sterile field. 11:18:42 WHISPER 300cm guide wire ([id number]) opened to sterile field. 11:18:47 GUIDE 6FR XBLAD 3.5 catheter ([id number]) opened to sterile field. 11:18:50 SHEATH 6FR [place] (IFY368) opened to sterile field. 11:18:58 Sheath upsized to a 6 Fr Short. 11:19:13 6 Fr XBLAD 3.5 guide catheter was inserted over the wire 11:21:08 Heparin Bolus 4000 units I.V. was administered by Jesse Malone RN; for anticoagulation; verified with dr noel Verbal order read back and verified. 11:21:53 Pre PCI Site: [place] LAD has 80% stenosis. 11:22:16 WHISPER 300 wire advanced. 11:22:57 Atropine 0.5 mg I.V. was administered by Jesse Malone RN; For bradycardia; Verbal order read back and verified. 11:24:18 Wire advanced across lesion. 11:24:55 Place stent Inflation Number: 1 A MANNY OTW 2.5 x 15 stent ([id number]) was prepped and advanced across the Mid LAD 80. The stent was deployed at 14 AGUSTÍN for 0:00 (min:sec) . 11:25:52 Stent catheter was removed intact over wire. 11:25:52 Wire removed. 11:25:53 Guide catheter removed. 11:25:55 EXOSEAL 6Fr (EX600) opened to sterile field. 11:26:07 Sheath removed intact; hemostasis achieved with Exoseal to the Right Femoral artery. 11:26:13 Fluoroscopy time 02.90 minutes. 11:26:20 Fluoroscopy dose: 284 mGy 11::26 Dose Area Product 15722 mGy/cm. 11:26:41 Flurop Dose total: 284 11:26:44 Procedure ended.(Physican Out) 11:27:26 Contrast amount:Isovue 370 76ml. 11:27:29 Maximum allowable dose exceeded? No. 11::29 Sharps counted by scrub and verified by R.N. 11:27:33 Post-op/insertion site Right Femoral artery dressed using a 4 x 4 and Tegaderm. 11:27:36 Post Procedure Pulses reassessed and unchanged 11:27:39 Post procedure: right dorsailis pedis pulse 1+ Palpable, but thready & weak; easily obliterated. 11:27:42 Post-procedure physical assessment completed. ASA score P 2 - A patient with mild systemic disease as per Edouard Ulloa MD. 11:27:45 Post procedure rhythm: unchanged. 11:27:47 Estimated blood loss: 10 ml 11:27:49 Post procedure instruction explained to patient.Patient verbalizes understanding. 11:27:49 Patient needs reinforcement of post procedure teaching. 11:28:22 Procedure type changed to Cath procedure, Diagnostic procedure, LHC, [facility] w/Coronaries, Sedation Charges, Moderate Sedation up to 15 minutes, PCI procedure, Coronary Stent, Coronary Stent Initial, Hemochron ACT Test 11:29:22 Procedure and supply charges have been captured, reviewed, submitted and are correct. 11:29:32 Procedure Complication : No complications 11::33 Vital chart was stopped 11::36 [facility] Findings: MVD- PCI performed (see procedure note) 11:29:39 Operative report dictated upon procedure completion. 11::40 See physician's report for complete and final results. 11::42 Report given to [facility]. 11:29:45 Patient transfered to [facility] II with Bed. 11:29:48 Procedure ended. 11:29:48 Full Disclosure recording stopped 11:29:59 ACC-PCI Only Patient was given prescriptions, or instructed by Edouard Ulloa MD to start/continue the following medications upon discharge: Plavix 11:30:00 End room use (Document Last) 11:30:16 End room use (Document Last) 11:30:42 End room use (Document Last) 11:31:03 ACT drawn and resulted at 229 seconds. (normal therapeutic range 180-240 seconds). Intervention Summary Intervention Notes Time ActionType Lesion and Equipment Action# Pressure Duration Attributes Used 11:24:55 Place stent Mid LAD MANNY OTW 2.5 1 14 00:00 x 15 stent ([id number]) Device Usage Item Name Manufacture Quantity Catalog Hospital Part Current Minim al Lot# / Number Charge Number Stock Stock Serial# Code ACIST Syringe Acist 1 16768 030783 150612 913583 20 (17567) Medical Systems Inc Bag Decanter Microtek 1 933602 83352 652989 5 () Medical Inc. Medline Cath Medline 1 [id number] 144202 05147 963516 5 Pack ([id number]) ACIST Hand Acist 1 81805 330457 957153 905224 5 Control Medical (47648) Systems Inc ACIST Acist 1 61764 032860 047036 675449 5 Manifold Medical (40117) Systems Inc DIAGNOSTIC Cardinal 1 SK2853 460211 41555 420139 30 Multipack 5Fr Health catheter set (SC9413) SHEATH 5FR Terumo 1 VSV900 087317 647774 413407 5 [place] (FFO275) EMERALD Guide Cardinal 1 502-455 740362 678522 868522 5 Wire Health (502-455) MULTIPACK JL Cardinal 1 426121 5 4.0 5Fr Health catheter MULTIPACK Cardinal 1 499869 5 3DRC 5Fr Health catheter MULTIPACK Cardinal 1 997315 5 Pigtail 5 Fr Health catheter INFLATOR Merit 1 RW6622 869288 454623 479743 15 [facility] Medical BasixCompak (LJ1473) WHISPER 300cm Manuel 1 [id number] 706929 945839 851778 5 guide wire Vascular ([id number]) GUIDE 6FR Cardinal 1 [id number] 216884 909417 561742 10 XBLAD 3.5 Health catheter ([id number]) SHEATH 6FR Terumo 1 RPK099 503306 580031 812096 40 [place] (ITG145) MANNY OTW 2.5 Medtronic 1 [id number] 359904 37621 365875 5 [id number] x 15 stent ([id number]) EXOSEAL 6Fr Cardinal 1 EX600 591513 415772 643202 10 (EX600) Health Signature Audit [place] Stage Time Signature Unsigned Intra-Procedure 09/11/2019 Bonnie Mitchell 11:30:16 AM RT(R) Intra-Procedure 09/11/2019 Jesse Malone RN 11:30:42 AM Intra-Procedure 09/11/2019 Edouard Townsned 11:33:18 AM Felipe DANGELO [place] [id number] [place] [address]
[~2019-09-10 12:31] MED LIST changes: +HYDROCODONE-A1 UDTA2 PO
[2019-09-10] MEDS ORDERED: CALAN SR120 MG PO (12:54)
[2019-09-10] MEDS ORDERED: BAYER CHEWABLE81 MG PO (12:57)
[2019-09-10] MEDS ORDERED: TOPAMAX50 MG PO (12:57)
[2019-09-10 13:31] LABS: BASOPHILS 0.4 % (0-2); HEMATOCRIT 41.2 % (36.0-48.0); HEMOGLOBIN 13.5 g/dL (12-16); IMMATURE GRANULOCYTES 0.5 % (0-5); LYMPHOCYTES 43.7 % (15-50); MCH 26.4 pg (26.0-34.0); MCHC 32.8 g/dL (31.0-37.0); MCV 80.6 fL (80.0-100.0); MEAN PLATELET VOLUME 8.7 fL (7.4-10.4); MONOCYTES 7.9 % (2-11); NEUTROPHILS 43.5 % (40-80); RBC 5.11 10x6/uL (4.00-5.40); RDW 13.2 % (11.5-14.5); WBC 7.3 10x3/uL (4.8-10.8)
[2019-09-10 13:32] LABS: CALC OSMOLALITY 278 mosm/kg (275-300); CALCIUM 9.6 mg/dL (8.5-10.1); CHLORIDE - SERUM 105 mmol/L (98-107); CREATININE - SERUM 0.8 mg/dL (0.6-1.3); GLUCOSE 105 mg/dL (74-106); POTASSIUM - SERUM 3.8 mmol/L (3.5-5.1); SODIUM 140 mmol/L (136-145); UREA NITROGEN 12 mg/dL (7-18); eGFR NON AFRICAN AMERICAN 76 mL/min (90-120)
[2019-09-10 13:34] LABS: PLATELET COUNT 266 10x3/uL (130-400)
[2019-09-10 13:46] VITALS: BP 111/69; BMI 26.9
[2019-09-10 13:48] LABS: CKMB 0.7 U/L (0.0-3.6); CREATINE KINASE 49 UL (21-215); TROPONIN-I < 0.017 ng/mL (0.000-0.060)
--- NOTE | 2019-09-10 14:51 | NUR ---
IV STARTED TO LEFT FA WITH 22 GAUGE CATH X 1 STICK AND FLUSHED WITH NS. LINE IS PATENT.
[2019-09-10 15:07] VITALS: Ht 149.9 cm; Wt 60.5 kg
[2019-09-10 15:31] LABS: CHOL - HDL RATIO 3.8 ratio (2.3-4.1); LDL-HDL RATIO 1.6 ratio (1.5-3.5)
[2019-09-10 16:52] VITALS: BP 114/68
--- NOTE | 2019-09-10 17:13 | HP ---
PATIENT: BARNEY KAUFMAN MEDICAL RECORD: [id number] ACCOUNT: [id number] LOCATION:[facility].2115 : 53 ADMISSION DATE: 09/10/19 PCP: RUIZ ALMANZAR MD HISTORY AND PHYSICAL EXAMINATION REASON FOR ADMISSION: Chest pain. HISTORY OF PRESENT ILLNESS: The patient is a 64-year-old female with previous history of coronary artery disease. She had a LAD and left circumflex PTCA [place] [address] Wayne. She had a normal stress test at that time. The patient presented same for the last month, she has had exertional and rest chest discomfort. She is scheduled to see one of the knife setter assembler, but symptoms became worse and presented to my office today. She said over the last 2 weeks, she has had 3 severe episodes of rest and exertional chest pain and while walking 2 days ago, the pain radiated into to both sides of her neck and both arms. Last evening, she developed chest pain after her meal, took a nitro and went to bed, praying she would wake up this morning. She said the pain was severe, substernal, radiating in the neck bilaterally, both arms, to the elbow with nausea and shortness of breath and diaphoresis. She has been fatigued and feels similarly she has previously when she has had stents placed. PAST MEDICAL HISTORY: Essential hypertension, CAD with 7 stents, she states. History of remote seizure disorder, hyperlipidemia, pyelonephritis, chronic anxiety, depression, osteoarthritis, diabetes mellitus type 2, hypothyroidism, migraine headaches. PAST SURGICAL HISTORY: PTCA multiple vessels last LAD and circumflex in 2019, repair of an incarcerated inguinal hernia, TAHBSO. FAMILY HISTORY: Father at 87, had CAD, hyperlipidemia, diabetes and of an MA. Mother at 65 of cancer of the colon, CAD, hyperlipidemia, diabetes, and MA. Sister at 48, CAD and MA. Mother at 45, cancer, small lung cell type. SOCIAL HISTORY: She is . She is a former smoker. Does not drink alcohol. 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 Currently is on furlough. HOME MEDICATIONS: Levothyroxine 75 mcg p.o. q.a.m. a.c., nitroglycerin 0.4 mg sublingual p.r.n. chest pain, Isordil ER 30 mg p.o. daily, pravastatin 80 mg at bedtime, metformin ER 500 mg at bedtime, verapamil ER 120 mg tablet by mouth daily, meclizine 25 mg t.i.d. p.r.n. dizziness, nabumetone 500 mg p.o. b.i.d. p.c., citalopram 40 mg a day, clopidogrel 75 mg a day, aspirin 81 mg a day, Topamax 25 mg 2 tabs by mouth nightly. ALLERGIES: BACTRIM, BACTROBAN AND CIPROFLOXACIN. REVIEW OF SYSTEMS: CONSTITUTIONAL: Fatigue without fever recently. HEENT: No recent visual change, sinus congestion, sore throat or headache. RESPIRATORY: Mild shortness of breath on exertion. No cough, sputum production. CARDIAC: Exertional and rest, substernal chest pain radiating to neck and arms as mentioned, worse in the last 2 weeks, 3 episodes. GASTROINTESTINAL: No nausea, vomiting, change in stools, blood per rectum or HISTORY AND PHYSICAL [id number] BARNEY KAUFMAN dyspepsia. GENITOURINARY: No dysuria or incontinence. GYNECOLOGIC: No vaginal bleeding. ENDOCRINE: Denies polyuria, polydipsia, heat or cold intolerance. NEUROLOGIC: No history of stroke, TIA, or vascular headaches. Recently, she has had no seizures. PSYCHIATRIC: Admits to chronically depressed mood. PHYSICAL EXAMINATION: GENERAL: The patient is alert and oriented, in no acute distress. Has minimal dull aching chest pain currently. VITAL SIGNS: Show temperature of 98.6, blood pressure 132/60, heart rate 80 and regular. Height is 5 feet, weight 133.8 pounds, BMI is 26.1. HEENT: Her eyes are clear and nonicteric. Oropharynx unremarkable. NECK: Supple, without bruits, masses or JVD. CHEST: Chest wall nontender. Chest clear. HEART: Regular without murmur. ABDOMEN: Nontender throughout. EXTREMITIES: No gross edema. NEUROLOGICAL: Oriented to person, place, and time. Cranial nerves intact. Gait is normal. LABORATORY DATA: EKG shows sinus rhythm. Labs are currently pending. ASSESSMENT: 1. Exertional rest chest pain suggesting angina. 2. Prior history of multiple PTCAs for LAD and circumflex disease. Last intervention in 2018 with negative stress test. 3. Strong family history of heart disease. 4. Hypertension, hyperlipidemia, type 2 diabetes mellitus, depression, remote seizure. PLAN: The patient will be directly admitted to the observation for serial cardiac enzymes and cardiology consultation. TRANSINT:[id number] Voice Confirmation ID: [id number] DOCUMENT ID: [id number] RUIZ ALMANZAR MD at 1713 CC: [id number] DICTATION DATE: 09/10/19 1343 PLASTER MECHANIC: 09/10/19 1439 ADM IN [place] [id number] [place] [id number]
[2019-09-10 20:00] VITALS: BP 103/63
--- NOTE | 2019-09-10 20:31 | NUR ---
EVENING ROUNDS COMPLETE. PT SITTING UP IN BED. NO SIGNS OF DISTRESS. PT DENIES ANY PAIN OR NEEDS AT THIS TIME. CL IN REACH, BED IN LOWEST POSITION.
[2019-09-11] VITALS: BP 104/62
[2019-09-11 04:00] VITALS: BP 111/61
[2019-09-11 09:35] VITALS: BP 103/61
--- NOTE | 2019-09-11 10:52 | NUR ---
PRE-OPS GIVEN. TO PROCUREMENT TECHNICIAN BY BED.
--- NOTE | 2019-09-11 11:53 | NUR ---
BACK FROM BAIL ATTACHER. VS WNL. RIGHT GROIN STABLE WITHOUT BLEEDING OR HEMATOMA NOTED. WILL MONITOR.
[2019-09-11 13:47] VITALS: BP 112/60
--- NOTE | 2019-09-11 15:27 | NUR ---
BED REST UP. GROIN STABLE.
--- NOTE | 2019-09-11 16:04 | NUR ---
IV AND TELEMETRY DCD. DC PLANS GIVEN. UNDERSTANDING VOICED. ESCORTED TO CAR BY W/C.
--- NOTE | 2019-09-12 14:44 | OP ---
PATIENT NAME: BARNEY KAUFMAN MEDICAL RECORD: [id number] :53 LOCATION:D.M2 D.2115 ADMISSION DATE:09/10/19 SURGEON: SIMÓN JUAREZ MD DATE OF OPERATION: 09/11/2019 PROCEDURE: Left heart catheterization, selective coronary angiography, right femoral artery approach. CATHETERS: A 5-[place] sheath, 5/4 left and right Can, 5/4 pig. The procedure was well tolerated. The patient was returned to campos. Sheath was removed. ExoSeal device placed. FINDINGS: Left ventriculography in 30-degree MCCULLOUGH view: Normal wall motion. Normal systolic function. CORONARY ANATOMY: LEFT MAIN: Left main is free of disease. LAD: At the end of the stent, shows end-stent restenosis about 80%. Diagonal itself previously stented appears patent. CIRCUMFLEX: Circumflex free of disease. RIGHT CORONARY ARTERY: Again, small artery. No evidence of restenosis. No progression of [place] disease. PLAN: Intervention to LAD momentarily. DESCRIPTION OF PROCEDURE: A 5-[place] sheath was exchanged for a 6-[place] sheath. XB LAD guiding catheter provided excellent guide catheter support followed by a 300 cm Whisper wire was placed across the tightly occluded LAD down this portion of vessel. Pre-deployment, she did have some bradyarrhythmias requiring 1 mg of atropine, with some contrast hanging up before stent placement. Questionable of some thrombus burden. Next, a 2.5 x 15 mm Abhishek drug-eluting stent up to 14 atmospheres for 45 seconds. Final angiography shows excellent resolution of a 80% stenosis, no significant residual. MARIFER flow was 3 throughout the procedure. Heparin was used during the case. Sheath was closed with ExoSeal device. Plavix was loaded in the lab. TRANSINT:[id number] Voice Confirmation ID: [id number] DOCUMENT ID: [id number] SIMÓN JUAREZ MD at 1444 CC: [id number] DICTATION DATE: 09/11/19 1138 DOCUMENTATION ENGINEER: 09/11/19 1435 DIS IN 09/11/19 [facility] [address] [place] [address]
== END 2019-09-11 16:04 | disposition home or self-care (01) ==
LOC: D.M2 12:31 → OBSVTIME 12:39 → D.M2 12:39
PROVIDERS: Internal Medicine Interventional Cardiology; ADMIT Family Medicine; ATTEND Family Medicine
DX: I25.110 Atherosclerotic heart disease of native coronary artery with unstable angina pectoris (principal); I10 Essential (primary) hypertension; E78.5 Hyperlipidemia, unspecified; F32.9 Major depressive disorder, single episode, unspecified; E88.81 Metabolic syndrome and other insulin resistance; E11.65 Type 2 diabetes mellitus with hyperglycemia
CPT/HCPCS: 93458; C9600

== ENCOUNTER 2019-09-18 13:46 | Inpatient (IN) | payer MEDICARE ==
[~2019-09-18] VITALS: Ht 149.9 cm; Wt 58.2 kg
--- NOTE | ~2019-09-18 | OP ---
PATIENT NAME: BARNEY KAUFMAN MEDICAL RECORD: [id number] :53 LOCATION:D.M2 D.2117 ADMISSION DATE:09/19/19 SURGEON: SIMÓN JUAREZ MD DATE OF OPERATION: 09/20/2019 PROCEDURE: Left heart catheterization, selective coronary angiography, left femoral artery approach. CATHETERS: A 5-[place] sheath, 5/4 left and right Can, 5/4 pig. The procedure was well tolerated. The patient returned to campos, sheath removed. ExoSeal device placed. FINDINGS: Left ventriculography in 30-degree MCCULLOUGH view: Normal wall motion, normal systolic function. CORONARY ANATOMY: LEFT MAIN: Left main is free of disease. LAD: Free of disease at the diagonal system. Previously placed stent is widely patent. MARIFER flow 3 distally. No evidence of edge dissection, thrombus. CIRCUMFLEX: Free of disease. RIGHT CORONARY: Dominant artery, gives rise to PDA, free of disease. IMPRESSION: Normal left ventricular function, normal coronary anatomy. TRANSINT:[id number] Voice Confirmation ID: [id number] DOCUMENT ID: [id number] SIMÓN JURAEZ MD CC: [id number] DICTATION DATE: 09/20/19900 REGISTERED PHYSICAL THERAPIST: 09/20/19 [address] [facility] [address] [place] [address]
--- NOTE | ~2019-09-18 | HEMODYNAMI ---
PATIENT:BARNEY KAUFMAN MEDICAL RECORD: [id number] : 53 [facility] ADMISSION DATE: 09/19/19 Generatedon:09/20/20198:54 Patient name: BARNEY KAUFMAN Patient #: [id number] SSN: [id number] : 1955 Date of study: 09/20/2019 Page: Of Hemodynamic Procedure Report Patient Data Patient Demographics Procedure consent was obtained First Name: BARNEY Gender: Female Last Name: MANDEEP : 1955 [facility] Initial: HOLLY Age: 64 year(s) Patient #: [id number] Race: SSN: [id number] Additional ID: [id number] Contact details Address: [address] [place] [address] State: [place] City: [place] Zip code: [address] Past Medical History Allergies Allergen Reaction Date Comments Reported Sulfa drugs 03/22/2016 Other allergy 07/10/2017 Sulfa, PCN Other allergy 09/11/2019 PCN, SULFA, BACTRIM, CIPRO Admission Admission Data Admission Date: 09/19/2019 Admission Time: 14:57 Arrival Date: 09/20/2019 Arrival Time: 14:57 Admit Source: Emergency Insurance Payor: Medicare department [facility] #: [id number] Room #: D.2117 Height (in.): 58.66 BSA: 1.52 (m2) Height (cm.): 149 BMI: 26.12 (kg/m2) Weight (lbs.): 127.87 Weight (kg.): 58 Lab Results Lab Result Date: 09/20/2019 Lab Result Time: 0:00 Biochemistry Name Units Result Min Max BUN mg/dl 18 --(---*)-- 7 18 Creatinine mg/dl 0.9 --(-*--)-- 0.6 1.3 eGFR ml/min 67.57503 *-(----)-- 90 120 NONAFRICAN CBC Name Units Result Min Max Hemoglobin g/dl 11 *-(----)-- 13.5 17.5 Procedure Procedure Types Cath Procedure Diagnostic Procedure [facility] w/Coronaries Sedation Charges Procedure Description Procedure Date Procedure Date: 09/20/2019 Procedure Start Time: 8:41 Procedure End Time: 8:52 Procedure Staff Name Function Edouard Ulloa MD Performing Physician Claudette Norwood RT Monitor Logan Lora RT Scrub Sindy Lauren RN Nurse Procedure Data Cath Procedure Fluoroscopy Diagnostic fluoroscopy Total fluoroscopy Time: 0.8 time: 0.8 min min Diagnostic fluoroscopy Total fluoroscopy dose: 207 dose: 207 mGy mGy Contrast Material Contrast Material Type Amount (ml) Isovue 300 207 Entry Location Entry Primary Successful Side Size Upsize Upsize Entry Closure Succes sful Closure Location (Fr) 1 (Fr) 2 (Fr) Remarks Device Remarks Femoral Left 5 Fr Exoseal artery Estimated blood loss: 207 ml Diagnostic catheters Device Type Used For End Catheter Placement MULTIPACK JL 4.0 5Fr Left Coronary catheter Angiography MULTIPACK 3DRC 5Fr Right Coronary catheter Angiography MULTIPACK Pigtail 5 Fr LV Angiography catheter Procedure Complications No complications Procedure Medications Medication Administration Route Dosage 0.9% NaCl I.V. 100 ml/hr Oxygen etCO2 Nasal cannula 2 l/min Lidocaine 2% added to field 20 Heparin Flush Bag added to field 2 bags (1000units/500ml NS) Versed I.V. 1 mg Fentanyl I.V. 25 mcg Hemodynamics Rest BSA: 1.52 (m2) HGB: 11 (g/dl) O2 Consumption: Estimated: 145.73 (ml/min) O2 Cons umption indexed: Estimated:95.88 (ml/min/m) Heart Rate: 76 (bpm) Pressure Samples Time Site Value (mmHg) Purpose Heart Use Rate(bpm) 8:48 LV 101/17,19 Snapshot 70 Gradients Valve Time Site Site Mean SEP/DFP Peak To Heart Use 1 2 (mmHg) (sec/min) Peak Rate (mmHg) (bpm) Aortic 8:49 LV AO 68 Snapshots Pre Cath Intra NCS Post Cath Vital Signs Time Heart Resp SPO2 etCO2 NIBP (mmHg) Rhythm Pain Sedation Rate (ipm) (%) (mmHg) Status Level (bpm) 8:31:53 65 17 97 19.3 128/84(98) NSR 0 (11) 10(A) , No pain 8:36:08 76 15 97 2.9 119/70(94) NSR 0 (11) 10(A) , No pain 8:40:17 67 12 96 30.5 117/69(101) NSR 0 (11) 10(A) , No pain 8:44:27 65 13 96 34.3 113/69(87) NSR 0 (11) 9(A) , No pain 8:48:35 68 11 96 32.1 116/67(99) NSR 0 (11) 10(A) , No pain 8:52:45 69 11 97 32.1 107/69(89) NSR 0 (11) 10(A) , No pain Medications Time Medication Route Dose Verified Delivered Reason Notes Effe ctiveness by by 8:31:01 0.9% NaCl I.V. 100 Edouard Sindy used for ml/hr [place] procedure MD GUERRA 8:31:08 Oxygen etCO2 2 Edouard Sindy used for Nasal l/min [place] procedure cannula MD GUERRA 8:31:14 Lidocaine 2% added 20ml Edouard Nunn for local to vial [facility] anesthetic field MD DANGELO 8:31:19 Heparin Flush added 2 Edouard Edouard used for Bag to bags [facility] procedure (1000units/500ml field MD DANGELO NS) 8:40:40 Versed I.V. 1 mg Edouard Sindy for [place] Leonidas sedation MD GUERRA 8:40:49 Fentanyl I.V. 25 Edouard Sindy for mcg [place] Leonidas sedation MD GUERRAprofessor of education Log Time Note 8:10:11 Informed consent obtained and on chart 8:10:17 Diagnostic Cath Status : Urgent 8:10:32 Logan Lora RT(R) (CV) sent for patient. Start room use. 8:15:24 Arrival Date: 09/20/2019 2:57:00 PM 8:16:10 Admit Source: Emergency department 8:16:20 Insurance Payor : Medicare 8:17:37 Patient Height : 58.66 inches 8:17:42 Patient Weight : 127.87 lbs 8:21:21 Lab Result : eGFR NONAFRICAN 67.04597 ml/min 8:21:21 Lab Result : Hemoglobin 11 g/dl 8:21:21 Lab Result : BUN 18 mg/dl 8:21:21 Lab Result : Creatinine 0.9 mg/dl 8:21:30 Procedure Status Urgent Heart Cath (IP). 8:21:39 Time tracking: Regular hours (M-F 7:00 - 5:00) 8:21:42 Plan of Care:Hemodynamics will remain stable., Cardiac rhythm will remain stable., Comfort level will be maintained., Respiratory function will remain adequate., Patient/ family verbilizes understanding of procedure., Procedure tolerated without complication., Recovers from procedure without complications.. 8:21:47 Patient received from Med II to CCL 1 Alert and oriented. Tansferred to table in Supine position. 8:21:49 Warm blankets applied, and césar hugger turned on for patient comfort. 8:21:49 Correct patient and procedure confirmed by team. 8:21:49 ECG and BP/O2 sat monitors applied to patient. 8:30:50 Vital chart was started 8:31:01 0.9% NaCl 100 ml/hr I.V. was administered by Sindy Lauren RN; used for procedure; Verbal order read back and verified. 8:31:08 Oxygen 2 l/min etCO2 Nasal cannula was administered by Sindy Lauren RN; used for procedure; Verbal order read back and verified. 8:31:14 Baseline sample Acquired. 8:31:14 Lidocaine 2% 20ml vial added to field was administered by Edouard Ulloa MD; for local anesthetic; Verbal order read back and verified. 8:31:19 Heparin Flush Bag (1000units/500ml NS) 2 bags added to field was administered by Edouard Ulloa MD; used for procedure; Verbal order read back and verified. 8:31:23 Rhythm: sinus rhythm 8:31:24 Full Disclosure recording started 8:31:31 H&P Date Dictated: 09/20/2019 Within 30 days and on chart.. 8:31:38 Pre-procedure instructions explained to patient. 8:31:39 Pre-op teaching completed and patient verbalized understanding. 8:31:41 Family unavailable. 8:31:44 Patient NPO since Midnight. 8:31:46 Is the patient allergic to Iodine/contrast media? No. 8:31:47 Was the patient premedicated? Yes 8:31:48 Is patient on blood thinner?Yes 8:31:51 ACC The patient was administered the following blood thiners within the last 24 hours: ACCPlavix 8:31:53 Patient diabetic? Yes. 8:31:54 If diabetic: On Metformin? Yes 8:31:58 If on Metformin: Last Dose? 09/19/2019 8:32:01 Previous problem with sedation/anesthesia? No ? 8:32:03 Snore? Yes 8:32:04 Sleep apnea? No 8:32:05 Deviated septum? No 8:32:06 Opens mouth fully? Yes 8:32:07 Sticks out tongue? Yes 8:32:09 Airway obstruction? No ? 8:32:15 Dentures? Yes PATIALS IN TIGHT 8:32:21 Pre procedure: right dorsailis pedis pulse 2+ Normal; easily identifiable; not easily obliterated 8:32:23 Pre procedure: left dorsailis pedis pulse 2+ Normal; easily identifiable; not easily obliterated 8:32:25 Patient pain scale 0/10 ?. 8:32:32 IV patent on arrival in left forearm with 0.9% NaCl at [facility]. 8:32:44 Lab results completed and on chart. 8:35:40 Stress Test: no; N/A ? 8:38:51 Risk of Mortality: 0.3 8:38:55 Risk of blood transfusion: 2.4 8:38:59 Risk of CASSANDRA: 2.8 8:39:05 Bilateral groins area was prepped with chlora-prep and draped in sterile fashion 8:39:06 Alarms reviewed by R. N. 8:39:06 Sharps counted by scrub and verified by R.N. 8:39:08 Physician arrived 8:39:08 --------ALL STOP TIME OUT------ 8:39:09 Final Timeout: patient, procedure, and site verified with staff and physician. All members of the team are in agreement. 8:39:14 Left groin site verified by team. 8:39:18 Fire Safety Assessment: A--An alcohol-based skin anteseptic being used preoperatively., C--Open oxygen or nitrous oxide is being used., D--An ESU, laser, or fiber-optic light is being used. 8:39:23 Physical assessment completed. ASA score P 2 - A patient with mild systemic disease as per Edouard Ulloa MD. 8:39:31 2) 60-89 Mildly reduced kidney function, and other findings (as for stage 1) point to kidney disease. 8:40:01 Maximum allowable contrast dose (3.7 X eGFR X 0.75)185 ml. 8:40:05 Sedation plan: IV Moderate Sedation Medication:Versed, Fentanyl 8:40:08 Use device set Femoral Dx 8:40:09 ACIST Syringe (52511) opened to sterile field. 8:40:09 Bag Decanter (2002S) opened to sterile field. 8:40:10 Medline Cath Pack ([id number]) opened to sterile field. 8:40:12 ACIST Hand Control (85988) opened to sterile field. 8:40:12 ACIST Manifold (14655) opened to sterile field. 8:40:12 DIAGNOSTIC Multipack 5Fr catheter set (RB9879) opened to sterile field. 8:40:13 Tegaderm 4 x 4 (1626W) opened to sterile field. 8:40:14 SHEATH 5FR Graford (OEE028) opened to sterile field. 8:40:14 EMERALD Guide Wire (555-200) opened to sterile field. 8:40:40 Versed 1 mg I.V. was administered by Sindy Lauren RN; for sedation; Verbal order read back and verified. 8:40:49 Fentanyl 25 mcg I.V. was administered by Sindy Lauren RN; for sedation; Verbal order read back and verified. 8:41:29 Procedure started. 8:41:34 Local anesthetic to left femerol artery with Lidocaine 2% by Edouard Ulloa MD.INITIAL ACCESS ONLY 8:41:42 A 5 Fr sheath was inserted into the Left Femoral artery 8:42:11 Zero performed for pressure channel P1 8:42:15 Zero performed for pressure channel P1 8:42:20 Zero performed for pressure channel P1 8:42:35 Zero performed for pressure channel P1 8:42:54 A MULTIPACK JL 4.0 5Fr catheter was advanced over the wire and used for Left Coronary Angiography. 8:43:59 LCA angiography performed. 8:44:01 Injector settings: Ml/sec: 3, Volume: 6, 8:44:56 Catheter removed. 8:45:04 A MULTIPACK 3DRC 5Fr catheter was advanced over the wire and used for Right Coronary Angiography. 8:45:08 RCA angiography performed. 8:45:10 Injector settings: Ml/sec: 3, Volume: 6, 8:45:57 RCA angiography performed. 8:46:00 Injector settings: Ml/sec: 3, Volume: 6, 8:46:02 Catheter removed. 8:46:11 A MULTIPACK Pigtail 5 Fr catheter was advanced over the wire and used for LV Angiography. 8:46:34 LV hemodynamics recorded. 8:46:36 LV gram done using MCCULLOUGH 8:46:38 Injector settings: Ml/sec: 5, Volume: 15, 8:48:58 EF : 55 % 8:48:59 Catheter removed. 8:49:03 EXOSEAL 5Fr (EX500) opened to sterile field. 8:49:37 Sheath removed intact; hemostasis achieved with Exoseal to the Left Femoral artery. 8:49:39 Procedure ended.(Physican Out) 8:49:53 Fluoroscopy time 00.80 minutes. 8:49:58 Fluoroscopy dose: 207 mGy 8:49:58 Flurop Dose total: 207 8:50:03 Dose Area Product 61335 mGy/cm. 8:50:07 Contrast amount:Isovue 300 207ml. 8:50:10 Maximum allowable dose exceeded? No. 8:50:12 Sharps counted by scrub and verified by R.N. 8:50:30 Insertion/operative site no bleeding no hematoma. 8:50:36 Post-op/insertion site Left Femoral artery dressed using a 4 x 4 and Tegaderm. 8:50:37 Post Procedure Pulses reassessed and unchanged 8:50:40 Post procedure rhythm: unchanged. 8:50:51 Estimated blood loss: 207 ml 8:50:53 Post procedure instruction explained to patient.Patient verbalizes understanding. 8:50:55 Patient needs reinforcement of post procedure teaching. 8:51:14 Procedure type changed to Cath procedure, Diagnostic procedure, LHC, C w/Coronaries, Sedation Charges 8:51:58 Procedure and supply charges have been captured, reviewed, submitted and are correct. 8:52:05 Procedure Complication : No complications 8:52:08 Vital chart was stopped 8:52:11 [facility] Findings: mild to moderate CAD (<70%) 8:52:12 Operative report dictated upon procedure completion. 8:52:13 See physician's report for complete and final results. 8:52:17 Report given to Med II. 8:52:22 Patient transfered to [facility] II with Stretcher. 8:52:25 Procedure ended. 8:52:25 Full Disclosure recording stopped 8:52:29 End room use (Document Last) 8:52:51 End room use (Document Last) 8:53:22 End room use (Document Last) Device Usage Item Name Manufacture Quantity Catalog Hospital Part Current Minimal L ot# / Number Charge Number Stock Stock Serial# Code ACIST Acist 1 13958 641193 657747 268690 20 Syringe Medical (60479) Systems Inc Bag Microtek 1 2001S 090793 84942 756623 5 Decanter Medical Inc. () Medline Medline 1 [id number] 741577 73148 789050 5 Cath Pack ([id number]) ACIST Hand Acist 1 83446 769644 281439 596906 5 Control Medical (15243) Systems Inc ACIST Acist 1 89133 241098 122201 898746 5 Manifold Medical (30984) Systems Inc DIAGNOSTIC Cardinal 1 [id number] 151119 33404 275452 30 Multipack Health 5Fr catheter set (TP8442) Tegaderm 4 3M 1 1626W 812745 204294 776544 5 x 4 (1626W) SHEATH 5FR Terumo 1 OQS818 411445 248610 733912 5 Graford (DQQ353) EMERALD Cardinal 1 502-455 922182 087380 078153 5 Guide Wire Health (502-455) MULTIPACK Cardinal 1 851302 5 JL 4.0 5Fr Health catheter MULTIPACK Cardinal 1 106297 5 3DRC 5Fr Health catheter MULTIPACK Cardinal 1 540068 5 Pigtail 5 Health Fr catheter EXOSEAL 5Fr Cardinal 1 EX500 303603 437515 437776 10 (EX500) Health Signature Audit Export Stage Time Signature Unsigned Intra-Procedure 09/20/2019 Claudette Norwood 8:52:51 AM RT(R) Intra-Procedure 09/20/2019 Sindy Lauren 8:53:22 AM RN Intra-Procedure 09/20/2019 Edouard Townsend 8:54:53 AM Felipe DANGELO [address] [address]
[~2019-09-18 13:46] MED LIST changes: +BAYER CHEWABLE81 MG PO; +CALAN SR120 MG PO; +TOPAMAX50 MG PO
[2019-09-18 14:10] VITALS: BP 106/66
[2019-09-18 14:52] LABS: BASOPHILS 0.4 % (0-2); EOSINOPHILS 3.8 % (0-7); HEMATOCRIT 37.4 % (36.0-48.0); HEMOGLOBIN 12.4 g/dL (12-16); IMMATURE GRANULOCYTES 0.3 % (0-5); LYMPHOCYTES 40.6 % (15-50); MCH 26.3 pg (26.0-34.0); MCHC 33.2 g/dL (31.0-37.0); MCV 79.2 fL (80.0-100.0); MEAN PLATELET VOLUME 8.6 fL (7.4-10.4); MONOCYTES 7.9 % (2-11); PLATELET COUNT 232 10x3/uL (130-400); RBC 4.72 10x6/uL (4.00-5.40); RDW 13.5 % (11.5-14.5); WBC 7.4 10x3/uL (4.8-10.8)
[2019-09-18 15:00] VITALS: BP 113/66
[2019-09-18 15:00] LABS: APTT 25.6 SECONDS (22.8-39.4); INR 0.96 (0.85-1.17); PROTIME 12.8 SECONDS (11.6-15.0)
[2019-09-18 15:04] LABS: CALC OSMOLALITY 280 mosm/kg (275-300); CALCIUM 9.2 mg/dL (8.5-10.1); CARBON DIOXIDE 22.6 mmol/L (21.0-32.0); CHLORIDE - SERUM 107 mmol/L (98-107); CREATININE - SERUM 0.8 mg/dL (0.6-1.3); GLUCOSE 99 mg/dL (74-106); POTASSIUM - SERUM 3.6 mmol/L (3.5-5.1); SODIUM 140 mmol/L (136-145); UREA NITROGEN 18 mg/dL (7-18); eGFR NON AFRICAN AMERICAN 76 mL/min (90-120)
[2019-09-18 15:21] LABS: ALBUMIN 3.8 g/dL (3.4-5.0); ALKALINE PHOSPHATASE 77 U/L (30-120); ALT (SGPT) 17 U/L (10-68); BILIRUBIN - TOTAL 0.19 mg/dL (0.2-1.3); CKMB 0.6 U/L (0.0-3.6); CREATINE KINASE 57 UL (21-215); MAGNESIUM - SERUM 2.1 mg/dL (1.8-2.4); PROTEIN - SERUM 7.3 g/dL (6.4-8.2); TROPONIN-I < 0.017 ng/mL (0.000-0.060)
[2019-09-18 16:00] VITALS: BP 122/74
[2019-09-18 16:49] LABS: PLT FUNCT.(P2Y12) PLAVIX 138 PRU (194-418)
[2019-09-18 17:32] VITALS: BP 103/65; Ht 149.9 cm; Wt 58.2 kg
--- NOTE | 2019-09-18 19:15 | NUR ---
PATIENT IS ALERT AND ORIENTED, RESTING COMFORTABLY IN BED. RESPIRATIONS ARE EVEN AND UNLABORED. FAMILY AT BEDSIDE. NO S/S OF DISTRESS. NO C/O PAIN. CALL LIGHT WITHIN REACH. WILL CPOC.
[2019-09-18 20:00] VITALS: BP 108/63
[2019-09-18 21:29] LABS: CKMB 0.6 U/L (0.0-3.6); CREATINE KINASE 45 UL (21-215)
[2019-09-18 21:31] LABS: TROPONIN-I < 0.017 ng/mL (0.000-0.060)
[2019-09-19] VITALS: BP 98/56
[2019-09-19 04:00] VITALS: BP 108/63
[2019-09-19 06:46] LABS: BASOPHILS 0.5 % (0-2); EOSINOPHILS 4.9 % (0-7); HEMATOCRIT 35.3 % (36.0-48.0); HEMOGLOBIN 11.5 g/dL (12-16); IMMATURE GRANULOCYTES 0.3 % (0-5); LYMPHOCYTES 40.9 % (15-50); MCHC 32.6 g/dL (31.0-37.0); MCV 79.9 fL (80.0-100.0); MEAN PLATELET VOLUME 8.7 fL (7.4-10.4); MONOCYTES 7.4 % (2-11); PLATELET COUNT 219 10x3/uL (130-400); RBC 4.42 10x6/uL (4.00-5.40); RDW 13.6 % (11.5-14.5); WBC 6.1 10x3/uL (4.8-10.8)
[2019-09-19 06:54] LABS: ALBUMIN 3.6 g/dL (3.4-5.0); ALKALINE PHOSPHATASE 67 U/L (30-120); ALT (SGPT) 19 U/L (10-68); BILIRUBIN - TOTAL 0.31 mg/dL (0.2-1.3); CALC OSMOLALITY 280 mosm/kg (275-300); CALCIUM 8.7 mg/dL (8.5-10.1); CARBON DIOXIDE 21.1 mmol/L (21.0-32.0); CHLORIDE - SERUM 110 mmol/L (98-107); CKMB 0.3 U/L (0.0-3.6); CREATINE KINASE 37 UL (21-215); CREATININE - SERUM 0.8 mg/dL (0.6-1.3); GLUCOSE 99 mg/dL (74-106); POTASSIUM - SERUM 3.6 mmol/L (3.5-5.1); PROTEIN - SERUM 6.7 g/dL (6.4-8.2); SODIUM 140 mmol/L (136-145); UREA NITROGEN 17 mg/dL (7-18); eGFR NON AFRICAN AMERICAN 76 mL/min (90-120)
[2019-09-19 06:55] LABS: TROPONIN-I < 0.017 ng/mL (0.000-0.060)
[2019-09-19 10:27] VITALS: BP 105/63
[2019-09-19 14:00] VITALS: BP 109/67
--- NOTE | 2019-09-19 14:38 | NUR ---
C/O C/P AND SWEATING TO ERIKA REYNA DC CANCELLED FOR NOW.
--- NOTE | 2019-09-19 16:30 | NUR ---
IV STARTED TO LEFT FA WITH 22 GAUGE CATH X 1 STICK AND FLUSED WITH NS. LINE IS PATENT.
[2019-09-19 16:40] LABS: BASOPHILS 0.5 % (0-2); EOSINOPHILS 4.5 % (0-7); HEMATOCRIT 33.4 % (36.0-48.0); IMMATURE GRANULOCYTES 0.5 % (0-5); LYMPHOCYTES 47.2 % (15-50); MCH 26.3 pg (26.0-34.0); MCHC 32.9 g/dL (31.0-37.0); MCV 79.7 fL (80.0-100.0); MEAN PLATELET VOLUME 8.7 fL (7.4-10.4); MONOCYTES 9.9 % (2-11); NEUTROPHILS 37.4 % (40-80); PLATELET COUNT 203 10x3/uL (130-400); RBC 4.19 10x6/uL (4.00-5.40); RDW 13.6 % (11.5-14.5); WBC 5.6 10x3/uL (4.8-10.8)
--- NOTE | 2019-09-19 16:40 | NUR ---
CONSENTS SIGNED FOR [facility]. WILL CONT. PLAN OF CARE.
[2019-09-19 17:03] LABS: ANION GAP 13.9 mmol/L (8-16); CALCIUM 8.7 mg/dL (8.5-10.1); CARBON DIOXIDE 18.7 mmol/L (21.0-32.0); CHOL - HDL RATIO 4.9 ratio (2.3-4.1); CREATININE - SERUM 0.9 mg/dL (0.6-1.3); LDL-HDL RATIO 2.5 ratio (1.5-3.5); POTASSIUM - SERUM 3.6 mmol/L (3.5-5.1)
[2019-09-19 17:24] VITALS: BP 109/67
--- NOTE | 2019-09-19 19:34 | NUR ---
PATIENT IS ALERT AND ORIENTED, RESTING COMFORTABLY IN BED. RESPIRATIONS ARE EVEN AND UNLABORED. NO S/S OF DISTRESS. NO C/O PAIN. CALL LIGHT WITHIN REACH. WILL CPOC.
[2019-09-19 20:00] VITALS: BP 125/68
[2019-09-20 00:40] VITALS: BP 107/72
--- NOTE | 2019-09-20 03:43 | NUR ---
I have reviewed this patient and I concur with the Shift Assessment completed by the Licensed Practical Nurse today this shift.
[2019-09-20 04:00] VITALS: BP 96/51
--- NOTE | 2019-09-20 07:15 | NUR ---
RECEIVED PT IN BED AAOX4 RESP UNLabored skin w/d color wnl nad noted denies any needs or discomfort
--- NOTE | 2019-09-20 07:33 | HP ---
PATIENT: BARNEY KAUFMAN MEDICAL RECORD: [id number] ACCOUNT: [id number] LOCATION:[address] : 53 ADMISSION DATE: 09/19/19 PCP: No PCP HISTORY AND PHYSICAL EXAMINATION REASON FOR ADMISSION: Left chest and back pain with recent PTCA. HISTORY OF PRESENT ILLNESS: The patient is a 64-year-old female who underwent a PTCA of LAD stenosis on 09/09/2019. She did well post-procedure, had a little tightness in her chest. This afternoon, she was doing some light dusting in her home, walked outside to walk in the yard, and had severe onset of left-sided chest pain radiated up into her neck and back. She said it was 10/10 and reminded her of her previous angina. She took a nitroglycerin without much help. She called EMS. They advised her to take 4 aspirin chewable which she did. When they arrived, they gave her more nitro and her pain resolved. She now has a nitropatch in the ED and not having acute pain at this point. She says she has been compliant on her aspirin and Plavix therapy. PAST MEDICAL HISTORY: CAD with now 8 stents in the last week and LAD. Remote seizure disorder asymptomatic currently, hyperlipidemia, remote pyelonephritis, chronic anxiety, depression, osteoarthritis, diabetes mellitus type 2, hypothyroidism, and migraine headaches. PAST SURGICAL HISTORY: ESMEROSARIOADELAIDA, had repair of an incarcerated inguinal hernia. He has had over 8 PTCA in both LAD and circumflex lesions. FAMILY HISTORY: Mother at 65 with cancer of the colon, had CAD, hyperlipidemia, diabetes, and WA. Sister at 48 of CAD and WA. Father at 87, had CAD, hyperlipidemia, diabetes, and of an WA. Brother at 45 of cancer of small cell - lung cancer. SOCIAL HISTORY: , former smoker. Does not drink alcohol. 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 Currently is on [employer], living with her brother. HOME MEDICATIONS: Plavix 75 mg a day, levothyroxine 75 mcg p.o. q.a.m. a.c., Nitroglycerin 0.4 sublingual p.r.n. chest pain, Isordil ER 30 mg daily, pravastatin 80 mg at bedtime, metformin ER 500 mg at bedtime, verapamil ER 120 mg by mouth daily, meclizine 25 t.i.d. p.r.n. dizziness, nabumetone 500 b.i.d. p.c. p.r.n. arthralgias, citalopram 40 mg a day, and Topamax 25 mg tablets 2 by mouth at night. ALLERGIES: CIPRO, BACTROBAN, AND BACTRIM. REVIEW OF SYSTEMS: CONSTITUTIONAL: He has been fatigued for the last several months without improvement, post-PTCA denies fever. HEENT: No recent visual change, sinus congestion, or sore throat. Does wear glasses to read. Has a dull headache now currently. RESPIRATORY: No severe cough. CARDIAC: Chest pain as mentioned above with radiation to neck and left chest and left arm. Denies palpitations. GASTROINTESTINAL: Had nausea with chest pain that has now resolved. No dysphagia, change in stools or blood per rectum. GENITOURINARY: No incontinence. HISTORY AND PHYSICAL [id number] BARNEY KAUFMAN GYNECOLOGIC: No vaginal bleeding. ENDOCRINE: Denies polyuria, polydipsia, heat, or cold intolerance. NEUROLOGIC: No history of stroke, has had a remote history of seizures, currently asymptomatic. MUSCULOSKELETAL: Has chronic lumbago without sciatica. PHYSICAL EXAMINATION: VITAL SIGNS: Temperature 97.7 Fahrenheit orally, pulse 86 and regular, respirations are 16, blood pressure 124/75 with a sat of 99% on room air. HEENT: Normocephalic. Eyes are clear. NECK: No bruits or masses. CHEST WALL: Nontender. No rash. CHEST: Clear. HEART: Regular without murmur. PMI appropriate. ABDOMEN: Soft, nontender. EXTREMITIES: No CC&E. NEUROLOGICAL: Oriented to person, place, and time. Cranial nerves intact. Gait was not tested. LABORATORY DATA: White count 7400 with H and H of 12 and 37.4 respectively. BMP is normal with a creatinine of 0.8, glucose is 99, and magnesium 2.1. Cardiac enzymes are negative times 1. INR is 0.96. Platelet function P2Y12 units was low at 138. Chest x-ray shows left coronary artery stent noted to be present, but otherwise, unremarkable. EKG shows no acute changes. ASSESSMENT: Left precordial chest pain 1 week post-PTCA, LAD, possible recurrent angina, possible Plavix nonresponder. Hypothyroidism, hypertension, hyperlipidemia, history of remote seizures, and depression. PLAN: The patient admitted for serial enzymes. Cardiology consult. We will check for Plavix nonresponder labs. Further workup pending clinical course. TRANSINT:[id number] Voice Confirmation ID: [id number] DOCUMENT ID: [id number] RUIZ ALMANZAR MD at 0733 CC: [id number] DICTATION DATE: 09/18/191701 DETAILER: 09/18/192153 ADM IN [facility] [address] [id number]
[2019-09-20 07:57] VITALS: BP 144/69
[2019-09-20 11:21] VITALS: BP 116/64
--- NOTE | 2019-09-20 16:45 | NUR ---
REVIEWED DISCHARGE INSTRUCTIONS WITH PT PT STATES UNDERSTANDING COPY GIVEN DCD SALINE LOCK TO RFA WITH IV SITE FREE OF REDNESS OR EDEMA PT DISCHARGED HOME IN STABLE CONDITION WITH ALL PERSONAL BELONGINGS LEFT UNIT VIA W/C
--- NOTE | 2019-09-20 16:56 | MORECARE ---
CASE MANAGEMENT DISCHARGE SUMMARY PATIENT: BARNEY KAUFMAN UNIT: [id number] ADM DATE: 09/19/19 AGE: 64 : 53 SEX: F ROOM/BED: D.2153 AUTHOR: CHINO FARIAS PHYSICIAN: REFERRING PHYSICIAN: RUIZ SNOW MD DATE OF SERVICE: 09/20/19 Discharge Plan Patient Name: BARNEY KAUFMAN Facility: [facility]:[place] : 1955 Planned Disposition: Home Anticipated Discharge Date: 09/20/19 Discharge Date: Expected LOS: 1 Initial Reviewer: [email or web address] Initial Review Date: 09/20/2019 Generated: 09/20/19 5:55 pm Comments DCP- Discharge Planning Updated by [email or web address]: Betzy Zheng on 09/20/19 3:[address] Patient Name: BARNEY KAUFMAN Admission Status: ER Accout number: [id number] Admission Date: 09-19-2019 : 1955 Admission Diagnosis:CHEST PAIN, UNSPECIFIED Attending: RUIZ SNOW Current LOS: 1 Anticipated DC Date: 09-20-2019 Planned Disposition: Home Primary Insurance: MEDICARE A & B Discharge Planning Comments: CM met with patient to complete initial dc planning assessment. CM educated patient on the CM role and verbal consent given by patient to complete assessment. Patient lives at home with her brother. At discharge patient plans to return and feels this is a safe discharge. CM discussed availability of home health, rehab services, and medical equipment. Patient denied known discharge needs at this time. States her son will pick her up. States Dr. Snow is going to have her do cardiac rehab. CM will continue to follow and will assist as needed with dc plans/needs. Fish Cleaner Machine Tender: Betzy Zheng DCPIA - Discharge Planning Initial Assessment Updated by [email or web address]: Betzy Zheng on 09/20/19 4:49 pm * Is the patient Alert and Oriented? Yes * How many steps to enter\exit or inside your home? 9/0 * PCP Dr. Snow * Pharmacy [facility] * Preadmission Environment Home with Family * ADLs Independent * Equipment None * List name and contact numbers for known caregivers / representatives who currently or will assist patient after discharge: Fatuma Kaufman - son - [phone] Bakari Price brother - [phone] * Verbal permission to speak to the caregivers and representatives has been obtained from the patient. Yes * Community resources currently utilized None * Additional services required to return to the preadmission environment? No * Can the patient safely return to the preadmission environment? Yes * Has this patient been hospitalized within the prior 30 days at any hospital? No Coverage Notice Reviewer: [email or web address] Albert Zheng Notice Issued Date-Time: 09/19/2019 13:28 Notice Type: Medicare Outpatient Observation Notice Notice Delivered To: Patient Relationship to Patient: Self Malted Milk Masher Name: Delivery Method: HAND - Hand Delivered Tequila Days: Prior Verbal Notification: Recipient Understood Notice: Yes Recipient Signature: Yes Med Rec Note Co-signed by Attending: Coverage Notice Comment: FELISHA explained, signed, given, copy placed in MR Patient Name: BARNEY KAUFMAN Page [id number] at 1656 All edits/amendments must be made on the electronic document DICTATION DATE: 09/20/191654 ICT ACCOUNT MANAGER: MIN 09/20/191654 RPT#: [id number] DC DATE: STATUS: ADM IN [facility] [address] [place] [address] END OF REPORT
--- NOTE | 2019-09-21 09:35 | MORECARE ---
CASE MANAGEMENT DISCHARGE SUMMARY PATIENT: BARNEY KAUFMAN UNIT: [id number] ADM DATE: 09/19/19 AGE: 64 : 53 SEX: F ROOM/BED: D.5419 AUTHOR: CHINO FARIAS PHYSICIAN: REFERRING PHYSICIAN: RUIZ SNOW MD DATE OF SERVICE: 09/21/19 Discharge Plan Patient Name: BARNEY KAUFMAN Facility: [facility]:[place] : 1955 Planned Disposition: Home Anticipated Discharge Date: 09/20/19 Discharge Date: 09/20/2019 Expected LOS: 1 Initial Reviewer: [email or web address] Initial Review Date: 09/20/2019 Generated: 09/21/19 10:34 am Comments DCP- Discharge Planning Updated by [email or web address]: Betzy Zheng on 09/20/19 3:[address] Patient Name: BARNEY KAUFMAN Admission Status: ER Accout number: [id number] Admission Date: 09-19-2019 : 1955 Admission Diagnosis:CHEST PAIN, UNSPECIFIED Attending: RUIZ SNOW Current LOS: 1 Anticipated DC Date: 09-20-2019 Planned Disposition: Home Primary Insurance: MEDICARE A & B Discharge Planning Comments: CM met with patient to complete initial dc planning assessment. CM educated patient on the CM role and verbal consent given by patient to complete assessment. Patient lives at home with her brother. At discharge patient plans to return and feels this is a safe discharge. CM discussed availability of home health, rehab services, and medical equipment. Patient denied known discharge needs at this time. States her son will pick her up. States Dr. Snow is going to have her do cardiac rehab. CM will continue to follow and will assist as needed with dc plans/needs. Tower Supervisor: Betzy Zheng DCPIA - Discharge Planning Initial Assessment Updated by [email or web address]: Betzy Zheng on 09/20/19 4:49 pm * Is the patient Alert and Oriented? Yes * How many steps to enter\exit or inside your home? 9/0 * PCP Dr. Snow * Pharmacy [facility] * Preadmission Environment Home with Family * ADLs Independent * Equipment None * List name and contact numbers for known caregivers / representatives who currently or will assist patient after discharge: Fatuma Kaufman - son - [phone] Bakari Price brother - [phone] * Verbal permission to speak to the caregivers and representatives has been obtained from the patient. Yes * Community resources currently utilized None * Additional services required to return to the preadmission environment? No * Can the patient safely return to the preadmission environment? Yes * Has this patient been hospitalized within the prior 30 days at any hospital? No Coverage Notice Reviewer: [email or web address] Albert Zheng Notice Issued Date-Time: 09/19/2019 13:28 Notice Type: Medicare Outpatient Observation Notice Notice Delivered To: Patient Relationship to Patient: Self Corporate Quality Manager Name: Delivery Method: HAND - Hand Delivered Tequila Days: Prior Verbal Notification: Recipient Understood Notice: Yes Recipient Signature: Yes Med Rec Note Co-signed by Attending: Coverage Notice Comment: FELISHA explained, signed, given, copy placed in MR Last DP export: 09/20/19 3:56 p Patient Name: BARNEY KAUFMAN Page [id number] at 0935 All edits/amendments must be made on the electronic document DICTATION DATE: 09/21/19933 DATA PROGRAMMER: MIN 09/21/19933 RPT#: [id number] DC DATE:09/20/19 STATUS: DIS IN [facility] [address] [place] [address] END OF REPORT
== END 2019-09-20 16:45 | disposition home or self-care (01) | DRG 287 ==
LOC: D.ER 13:46 → D.M2 15:20 → OBSVTIME 16:09 → D.M2 09-19 14:57
PROVIDERS: Family Medicine; Internal Medicine Cardiovascular Disease; Internal Medicine Interventional Cardiology; ADMIT Family Medicine; ATTEND Family Medicine
PROC: B2151ZZ Fluoroscopy of Left Heart using Low Osmolar Contrast (ICD-10-PCS; 2019-09-20)
PROC: 4A023N7 Measurement of Cardiac Sampling and Pressure, Left Heart, Percutaneous Approach (ICD-10-PCS; 2019-09-20)
PROC: B2111ZZ Fluoroscopy of Multiple Coronary Arteries using Low Osmolar Contrast (ICD-10-PCS; principal; 2019-09-20 08:10)
DX: I25.119 Atherosclerotic heart disease of native coronary artery with unspecified angina pectoris (principal); I10 Essential (primary) hypertension; E11.65 Type 2 diabetes mellitus with hyperglycemia; E78.5 Hyperlipidemia, unspecified; F41.8 Other specified anxiety disorders; E03.9 Hypothyroidism, unspecified; R61 Generalized hyperhidrosis

== ENCOUNTER 2019-12-11 13:40 | Inpatient (IN) | payer MEDICARE ==
[~2019-12-11] VITALS: Ht 121.9 cm; Wt 60.0 kg
[2019-12-11 14:29] VITALS: BP 118/70
[2019-12-11 14:54] LABS: BASOPHILS 0.4 % (0-2); EOSINOPHILS 5.1 % (0-7); HEMATOCRIT 37.7 % (36.0-48.0); HEMOGLOBIN 12.2 g/dL (12-16); IMMATURE GRANULOCYTES 0.3 % (0-5); LYMPHOCYTES 45.8 % (15-50); MCHC 32.4 g/dL (31.0-37.0); MCV 80.4 fL (80.0-100.0); MONOCYTES 8.5 % (2-11); NEUTROPHILS 39.9 % (40-80); PLATELET COUNT 227 10x3/uL (130-400); RBC 4.69 10x6/uL (4.00-5.40); RDW 13.2 % (11.5-14.5); WBC 6.9 10x3/uL (4.8-10.8)
[2019-12-11 15:06] LABS: APTT 25.1 SECONDS (22.8-39.4); INR 0.92 (0.85-1.17); PROTIME 12.3 SECONDS (11.6-15.0)
[2019-12-11 15:07] LABS: CALC OSMOLALITY 285 mosm/kg (275-300); CALCIUM 8.7 mg/dL (8.5-10.1); CARBON DIOXIDE 23.1 mmol/L (21.0-32.0); CHLORIDE - SERUM 108 mmol/L (98-107); GLUCOSE 153 mg/dL (74-106); POTASSIUM - SERUM 3.3 mmol/L (3.5-5.1); SODIUM 141 mmol/L (136-145); UREA NITROGEN 17 mg/dL (7-18); eGFR NON AFRICAN AMERICAN 59 mL/min (90-120)
[2019-12-11 15:21] LABS: ALBUMIN 3.8 g/dL (3.4-5.0); ALKALINE PHOSPHATASE 84 U/L (30-120); ALT (SGPT) 19 U/L (10-68); BILIRUBIN - TOTAL 0.13 mg/dL (0.2-1.3); CKMB 0.6 U/L (0.0-3.6); CREATINE KINASE 54 UL (21-215); TROPONIN-I < 0.017 ng/mL (0.000-0.060)
[2019-12-11 15:49] VITALS: BP 118/65
--- NOTE | 2019-12-11 17:30 | NUR ---
REPORT CALLED TO CHARLIE FLOREZ. AWAITING PACKET FROM REGISTRATION.
--- NOTE | 2019-12-11 18:40 | NUR ---
RECIEVED PT FROM ER. PT IS AAO AND UP AD AMEYA. VSS AND WNL. NO S/S OF DISTESS NOTED. TELEMETRY APPLIED. PIV SALINE LOCKED. QUICKSTART AND MED REQ COMPLETE. WILL CTM.
[2019-12-11 18:43] LABS: CKMB 0.6 U/L (0.0-3.6); CREATINE KINASE 44 UL (21-215)
[2019-12-11 18:46] LABS: TROPONIN-I < 0.017 ng/mL (0.000-0.060)
--- NOTE | 2019-12-11 19:42 | NUR ---
RECEIVED BEDSIDE REPORT. PATIENT IS ALERT AND ORIENTED, RESTING COMFORTABLY IN BED. RESPIRATIONS ARE EVEN AND UNLABORED. NO S/S OF DISTRESS. NO C/O PAIN. CALL LIGHT WITH REACH. WILL CPOC.
[2019-12-11 19:59] LABS: HELICOBACTER PYLORI IGG NEGATIVE (NEGATIVE)
[2019-12-11 20:00] VITALS: BP 115/57
[2019-12-11] MEDS ORDERED: GLUCOPHAGE500 MG PO (20:12)
[2019-12-11 20:41] VITALS: Ht 121.9 cm; Wt 60.0 kg
[2019-12-12 01:50] LABS: CKMB 0.4 U/L (0.0-3.6); CREATINE KINASE 48 UL (21-215); TROPONIN-I < 0.017 ng/mL (0.000-0.060)
[2019-12-12 08:00] VITALS: BP 131/83
[2019-12-12 08:15] LABS: CALC OSMOLALITY 281 mosm/kg (275-300); CALCIUM 8.6 mg/dL (8.5-10.1); CARBON DIOXIDE 21.9 mmol/L (21.0-32.0); CHLORIDE - SERUM 109 mmol/L (98-107); CKMB 0.6 U/L (0.0-3.6); CREATINE KINASE 44 UL (21-215); CREATININE - SERUM 0.8 mg/dL (0.6-1.3); GLUCOSE 107 mg/dL (74-106); SODIUM 141 mmol/L (136-145); TROPONIN-I < 0.017 ng/mL (0.000-0.060); UREA NITROGEN 15 mg/dL (7-18); eGFR NON AFRICAN AMERICAN 76 mL/min (90-120)
[2019-12-12 08:16] LABS: POTASSIUM - SERUM 3.9 mmol/L (3.5-5.1)
[2019-12-12 11:00] VITALS: BP 123/71
--- NOTE | 2019-12-12 15:05 | NUR ---
CONSENTS SIGNED. PRE-OPS GIVEN. TO DOSIMETRIST BY BED.
--- NOTE | 2019-12-12 16:48 | NUR ---
BACK FROM GI LAB. DIET RESUMED.
[2019-12-12 18:31] VITALS: BP 125/72
[2019-12-13 01:04] VITALS: BP 107/60
--- NOTE | 2019-12-13 07:00 | HP ---
PATIENT: BARNEY KAUFMAN MEDICAL RECORD: [id number] ACCOUNT: [id number] LOCATION:[address] : 53 ADMISSION DATE: 12/12/19 PCP: RUIZ ALMANZAR MD HISTORY AND PHYSICAL EXAMINATION REASON FOR ADMISSION: Atypical chest pain. HISTORY OF PRESENT ILLNESS: The patient is a 64-year-old female with known CAD. She states that she has had some sharp shooting pains in her left chest off and on since 9:00 this morning. She felt a little dizzy and short of breath, but no nausea. She came to cardiac rehab and said her blood pressure was low and her pulse rate was high. For that reason, they sent her to the emergency room. She states she has had a little shortness of breath recently. She has used Proventil inhaler to help. She thought she might have pleurisy because the pain is worse on deep breathing. She denies any recent exertional pain per se. The patient had an LAD stent earlier in the year, had more chest pain in September of this year. Dr. Zee performed a cardiac cath that showed that her LAD stent was widely patent. Dr. Gamez saw her in the office a month ago and thought she had noncardiac chest pain and placed her on Prevacid. She says she has been better until more recently. No change in stools or blood per rectum. PAST MEDICAL HISTORY: CAD with LAD stent as mentioned recently, history of essential hypertension, she has a total of 8 stents currently, seizure disorder, hyperlipidemia, remote pyelonephritis, chronic anxiety, depression, osteoarthritis, type 2 diabetes mellitus, hypothyroidism, migraine headaches. PAST SURGICAL HISTORY: TAHBSO, incarcerated inguinal hernia repair, 8 PTCAs in both LAD and circumflex lesions earlier this year and a negative cath showing patent LAD stent 09/2019. FAMILY HISTORY: Sister at 48 of CAD, [place]. Father at 87, had CAD, hyperlipidemia, diabetes and of an [place]. Brother at 45 of cancer, small cell of the lung and mother at 65 with cancer of the colon, had CAD, diabetes, and [place]. SOCIAL HISTORY: , former smoker, does not drink alcohol, and she has worked in entertainment and hospitality in the past, now retired. CURRENT MEDICATIONS: Prevacid 30 mg a day, Plavix 75 mg a day, levothyroxine 50 mcg p.o. q.a.m. a.c., nitroglycerin 0.4 sublingual p.r.n. chest pain, Isordil ER 30 mg a day, pravastatin 80 mg at bedtime, metformin ER 500 mg at bedtime, verapamil ER 120 daily, nabumetone 500 mg p.o. b.i.d. p.c. for arthritis, citalopram 40 mg a day, Topamax 25 mg tablets 2 by mouth at bedtime. ALLERGIES: CIPRO, BACTROBAN, AND BACTRIM. REVIEW OF SYSTEMS: GENERAL: Has mild fatigue. No recent fever. HEENT: No recent visual change, sinus congestion, or sore throat. RESPIRATORY: She has mild short of breath on exertion. She has had sharp pleuritic pains in her left anterior chest wall on deep inspiration radiating into her back. No hemoptysis, sputum production. CARDIAC: No exertional chest pain, palpitations. GASTROINTESTINAL: No nausea, vomiting, change in stools, or blood per rectum. HISTORY AND PHYSICAL [id number] MANDEEPNEGRODARBYAMANDA BARRERA Says she occasionally she has dyspepsia, has trouble distinguishing it from angina. Prevacid she thinks has helped her somewhat recently. GENITOURINARY: No dysuria or incontinence. GYNECOLOGIC: No vaginal bleeding. ENDOCRINE: Denies polyuria, polydipsia, heat or cold intolerance. NEUROLOGIC: No history of strokes. Had history of seizures, currently stable. PSYCHIATRIC: Admits to depressed mood but functions well currently. PHYSICAL EXAMINATION: VITAL SIGNS: Temp 98.6 Fahrenheit, pulse 90 and regular, respirations are 18, blood pressure 118/65, sat is 95% on room air. GENERAL: Alert female in no acute distress. HEENT: Eyes are clear. Oropharynx unremarkable. NECK: Supple without bruits or masses. CHEST: Clear throughout without wheeze or rales. On deep inspiration, she complains of pain of her left anterior chest wall radiating into her scapula. HEART: Regular rate. No murmur. ABDOMEN: Soft, nontender. Bowel sounds are active. LKSNP. EXTREMITIES: No gross edema. INTEGUMENT: No icterus. NEUROLOGIC: Oriented to person, place, and time. Cranial nerves intact. Gait was not tested. LABORATORY DATA: White count 6900, H&H of 12 and 37.7. Chemistry: Potassium is 3.3, glucose 153 nonfasting. Magnesium 2. Cardiac enzymes were negative initially. INR is 0.92. Chest x-ray is unremarkable except for cardiac stent. EKG shows no acute changes. ASSESSMENT: 1. Atypical chest pain. 2. Recent LAD PTCA with followup cath showing patency of the LAD stent 3. Hyperlipidemia. 4. Strong family history of heart disease. 5. Hypertension, controlled. 6. Recent hypotension, etiology unknown. 7. Pleuritic chest pain, etiology unknown. 8. Type 2 diabetes mellitus. PLAN: We will check CTA to rule out pulmonary cause for her symptoms. Serial cardiac enzymes. As her chest pain was relieved with nitroglycerin, emergency room doctor felt she should be admitted for observation and cardiac evaluation. NTS:[id number] Voice Confirmation ID: [id number] DOCUMENT ID: [id number] RUIZ ALMANZAR MD at 0700 CC: [id number] DICTATION DATE: 12/11/191712 DISABILITY MANAGER: 12/11/192031 ADM IN [facility] [id number] [place] [address]
[2019-12-13 09:20] VITALS: BP 120/72
[2019-12-13] MEDS ORDERED: PROTONIX40 MG PO (13:42)
[2019-12-13] MEDS ORDERED: PEPCID40 MG PO (13:43)
[2019-12-13] MEDS ORDERED: CARAFATE1 G PO (13:44)
[2019-12-13 13:53] VITALS: BP 124/68
--- NOTE | 2019-12-13 14:52 | NUR ---
IV AND TELEMETRY DCD. DC PLANS GIVEN. UNDERSTANDING VOICED. ESCORTED TO CAR BY W/C.
--- NOTE | 2019-12-13 18:00 | MORECARE ---
CASE MANAGEMENT DISCHARGE SUMMARY PATIENT: JUAN KAUFMAN UNIT: [id number] ADM DATE: 12/12/19 AGE: 64 : 53 SEX: F ROOM/BED: D.2117 AUTHOR: CHINO FARIAS PHYSICIAN: REFERRING PHYSICIAN: RUIZ ALMANZAR MD DATE OF SERVICE: 12/13/19 Discharge Plan Patient Name: JUAN KAUFMAN [facility] [facility] 1955 Planned Disposition: Home Anticipated Discharge Date: 12/13/19 Discharge Date: 12/13/2019 Expected LOS: 1 Initial Reviewer: [id number] Initial Review Date: 12/11/2019 Generated: 12/13/19 7:00 pm Coverage Notice Reviewer: [email or web address] Albert Cunningham Notice Issued Date-Time: 12/12/2019 14:42 Notice Type: Medicare Outpatient Observation Notice Notice Delivered To: Patient Relationship to Patient: Self [employer] Hcm Developer Name: Juan Kaufman Delivery Method: HAND - Hand Delivered Tequila Days: Prior Verbal Notification: Recipient Understood Notice: Yes Recipient Signature: Yes Med Rec Note Co-signed by Attending: Coverage Notice Comment: BAEZA signed/delivered to patient. Original to chart. Patient Name: JUAN KAUFMAN Page [id number] at 1800 All edits/amendments must be made on the electronic document DICTATION DATE: 12/13/19 1800 INVESTIGATIVE WRITER: MIN 12/13/19 1800 RPT#: [id number] DC DATE:12/13/19 STATUS: DIS IN [facility] [address] [place] [address] END OF REPORT
--- NOTE | 2019-12-16 11:44 | CN ---
PATIENT NAME:BARNEY KAUFMAN MEDICAL RECORD: [id number] : 53 LOCATION:D. D.2117 ADMIT DATE: 12/12/19 ACCOUNT: [id number] CONSULTING PHYSICIAN: SIMÓN JUAREZ MD REFERRING PHYSICIAN: RUIZ ALMANZAR MD DATE OF CONSULTATION: 12/12/2019 HISTORY OF PRESENT ILLNESS: A 64-year-old female with a known history of coronary artery disease, status post multiple interventions presented to ER. She was tachycardic and hypotensive. Additionally, she had been in the car with her brother smoking and reported some wheezing, some dyspnea. Cardiac enzymes are negative at this point, was hypokalemic. This has improved. At this point, her symptomatology improved as well. We are asked to see her concerning her cardiovascular status.. PAST MEDICAL HISTORY: Includes: 1. History of coronary artery disease as described above. 2. Hypertension. 3. Hyperlipidemia. 4. Diabetes mellitus. 5. Hypothyroidism. MEDICATIONS: Include Synthroid 75 mcg q. day, metformin 500 b.i.d., Celexa 40 q. day, aspirin 81 q. day, pravastatin 80 q. day, Imdur 30 q. day, Plavix 75 q. day. ALLERGIES: CIPRO, BACTRIM, SULFA, PENICILLIN. SOCIAL HISTORY: Nonsmoker, nondrinker. Does try to exercise on a regular basis. REVIEW OF SYSTEMS: The patient reports easy bruising but reports no swollen glands. The patient reports no fever, no night sweats, no significant weight gain, no significant weight loss. No significant exercise tolerance. The patient reports no dry eyes, no irritation, no vision change. Patient reports no difficulty hearing and no ear pain. Patient reports no frequent nose bleeds or nose and sinus problems. Patient reports no arm pain on exertion. No shortness of breath while lying down. No history of heart murmur. Patient reports no cough, no wheezing or coughing up blood. Patient reports no abdominal pain, no vomiting. Normal appetite. No diarrhea and not vomiting blood. No nausea and no constipation. Patient reports no incontinence. No difficulty urinating. No hematuria. No increased frequency. Patient reports no muscle aches. No weakness, no arthralgias, no back pain. No swelling of the extremities. Patient reports no abnormal mole, no jaundice, no rashes. Reports no loss of consciousness. No weakness and no numbness. No seizures, dizziness, or headaches. The patient reports no depression, no sleep disturbance, feeling safe in a relationship and no alcohol abuse. Patient reports no fatigue. Reports no runny nose or sinus pressure. No itching, no hives, and no frequent sneezing. PHYSICAL EXAMINATION: GENERAL: Pleasant, in no acute distress, appears stated age. VITAL SIGNS: 115/57, pulse 70 and regular. HEENT: Normocephalic, atraumatic. NECK: No JVD or bruits. CONSULT REPORT [id number] BARNEY KAUFMAN HEART: Regular. II/ systolic ejection murmur. LUNGS: Good air excursion. ABDOMEN: Soft, nontender. EXTREMITIES: Pulse 2+. No edema. IMPRESSION AND PLAN: Chest tightness and pressure as well as some wheezing, maybe intravascular volume depleted. Cardiac enzymes negative at this point. We will check echocardiograph study. Further recommendations based on above. NTS:[id number] Voice Confirmation ID: [id number] DOCUMENT ID: [id number] SIMÓN JUAREZ MD at 1144 CC: [id number] DICTATION DATE: 12/12/19 09 LUMBER SORTER MACHINE: 12/12/19 1845 DIS IN 12/13/19 [facility] [address] [place] [address]
--- NOTE | 2019-12-16 11:44 | EC ---
PATIENT:BARNEY KAUFMAN DATE OF SERVICE: 12/11/19 SEX: F MEDICAL RECORD: [id number] DATE OF : [birth year] LOCATION:D.M2 D.211 AGE OF PATIENT: 64 ADMISSION DATE: 12/12/19 REFERRING PHYSICIAN: INTERPRETING PHYSICIAN: SIMÓN JUAREZ MD ECHOCARDIOGRAM REPORT ECHO CHARGES 4 ECHO COMPLETE Date: 12/12/19 CLINICAL DIAGNOSIS: CAD ECHOCARDIOGRAPHIC MEASUREMENTS (adult normal given) AC root (d.<3.7cm) 2.3 cm LV Septum d (<1.2 cm> 0.8 cm Valve Excursion 1.3 cm LV Septum (systole) 1.3 cm Left Atria (s.<4.0cm> 3.5 cm LVPW d(<1.2cm) 1.3 cm RV (d.<2.3cm) 3.2 cm LVPW (sytole) 1.4 cm LV diastole(<5.6CM) 4.2 cm MV E-F(>70mm/sec) cm LV systole 3.3 cm LVOT Diameter 1.7 cm MV exc.(>10mm) cm Est.ejection fraction (50-75%) % DOPPLER: LVIT cm/sec A 66 cm/sec E 55 cm/sec LA cm/sec RVSP 26.3 mmHg LVOT 81 cm/sec AOP1/2T m/s Asc. Ao 122 cm/sec RVOT 46 cm/sec RA cm/sec PA 70 cm/sec AV Gradient Peak 6.0 mmHg AV Mean 3.0 mmHg AV Area 1.4 cm MV Gradient Peak 2.3 mmHg MV Mean 1.2 mmHg MV Area cm COMMENTS: Truss Driver Helper: Bryce CASEY Layout Technician: 3 Dr. Zee TAPE# PACS Pericardial Effusion N DATE OF SERVICE: Adequate 2D, color flow imaging, spectral Doppler, and M-Mode. No LVH. LV internal dimension is normal. Wall motion is normal. EF is greater than or equal to 55%. Aortic valve is tricuspid. No evidence of stenosis by Doppler interrogation. Left atrium is normal. Mitral valve shows no prolapse. Trace MR. Right-sided chambers are grossly normal. Trace TR. TRANSINT:[id number] Voice Confirmation ID: [id number] DOCUMENT ID: [id number] ECHOCARDIOGRAM REPORT [id number] BARNEY KAUFMAN SIMÓN JUAREZ MD at 1144 CC: [id number] DICTATION DATE: 12/12/19 1535 DIRECTOR EXPERIMENTAL MEDICINE: 12/12/19 1644 DIS IN 12/13/19 [facility] [id number] [place] [address]
== END 2019-12-13 14:53 | disposition home or self-care (01) | DRG 391 ==
LOC: D.ER 13:40 → D.M2 16:50 → OBSVTIME 17:56 → D.M2 12-12 17:32
PROVIDERS: Family Medicine; Internal Medicine Gastroenterology; ADMIT Family Medicine; ATTEND Family Medicine
PROC: 0W3P8ZZ Control Bleeding in Gastrointestinal Tract, Via Natural or Artificial Opening Endoscopic (ICD-10-PCS; principal; 2019-12-12 15:00)
DX: K21.0 Gastro-esophageal reflux disease with esophagitis (principal); K29.01 Acute gastritis with bleeding; E78.5 Hyperlipidemia, unspecified; I10 Essential (primary) hypertension; E11.9 Type 2 diabetes mellitus without complications; I25.10 Atherosclerotic heart disease of native coronary artery without angina pectoris; R00.0 Tachycardia, unspecified; I95.9 Hypotension, unspecified; E87.6 Hypokalemia; K44.9 Diaphragmatic hernia without obstruction or gangrene

== ENCOUNTER 2020-07-05 16:10 | Emergency (ER) | payer MEDICARE ==
[~2020-07-05] VITALS: Ht 149.9 cm; Wt 61.8 kg
[~2020-07-05 16:10] MED LIST changes: +CARAFATE1 G PO; +GLUCOPHAGE500 MG PO; +PEPCID40 MG PO
[2020-07-05 16:14] VITALS: Ht 149.9 cm; Wt 61.8 kg
[2020-07-05 16:43] LABS: BASOPHILS 0.5 % (0-2); EOSINOPHILS 4.7 % (0-7); HEMATOCRIT 38.8 % (36.0-48.0); HEMOGLOBIN 12.8 g/dL (12-16); IMMATURE GRANULOCYTES 0.2 % (0-5); LYMPHOCYTE ABS# 4.29 10x3/uL (1.18-3.74); LYMPHOCYTES 49.1 % (15-50); MCH 26.3 pg (26.0-34.0); MCV 79.7 fL (80.0-100.0); MEAN PLATELET VOLUME 8.7 fL (7.4-10.4); MONOCYTES 8.5 % (2-11); NEUTROPHIL ABS# 3.23 10x3/uL (1.56-6.13); PLATELET COUNT 222 10x3/uL (130-400); RBC 4.87 10x6/uL (4.00-5.40); RDW 13.5 % (11.5-14.5); WBC 8.7 10x3/uL (4.8-10.8)
[2020-07-05 16:50] LABS: APTT 24.6 SECONDS (22.8-39.4); INR 0.97 (0.85-1.17); PROTIME 11.9 SECONDS (11.6-15.0)
[2020-07-05 16:52] LABS: CALC OSMOLALITY 273 mosm/kg (275-300); CALCIUM 8.5 mg/dL (8.5-10.1); CARBON DIOXIDE 22.6 mmol/L (21.0-32.0); CHLORIDE - SERUM 104 mmol/L (98-107); CREATININE - SERUM 0.8 mg/dL (0.6-1.3); GLUCOSE 116 mg/dL (74-106); POTASSIUM - SERUM 3.5 mmol/L (3.5-5.1); SODIUM 136 mmol/L (136-145); UREA NITROGEN 15 mg/dL (7-18); eGFR NON AFRICAN AMERICAN 76 mL/min (90-120)
[2020-07-05 17:10] LABS: ALBUMIN 3.7 g/dL (3.4-5.0); ALKALINE PHOSPHATASE 82 U/L (30-120); ALT (SGPT) 26 U/L (10-68); CKMB 0.1 U/L (0.0-3.6); CREATINE KINASE 58 UL (21-215); PRO BNP 97 pg/mL (0-125); PROTEIN - SERUM 6.9 g/dL (6.4-8.2)
[2020-07-05 17:15] LABS: TROPONIN-I < 0.017 ng/mL (0.000-0.060)
[2020-07-05 17:55] LABS: INFLUENZA TYPE A NEGATIVE (NEGATIVE); INFLUENZA TYPE B NEGATIVE (NEGATIVE)
== END 2020-07-05 18:46 | disposition home or self-care (01) ==
LOC: D.ER 16:10
PROVIDERS: Family Medicine
DX: R07.9 Chest pain, unspecified (principal); Z86.16 Personal history of COVID-19; I10 Essential (primary) hypertension; Z95.5 Presence of coronary angioplasty implant and graft; K21.9 Gastro-esophageal reflux disease without esophagitis

== ENCOUNTER → 2020-07-06 09:00 | Outpatient (CLI) | payer MEDICARE ==
[2020-07-05 16:14] VITALS: BMI 27.5
== END | disposition home or self-care (01) ==
LOC: D.HCCARDIO 09:00
PROVIDERS: ATTEND Internal Medicine Cardiovascular Disease
DX: I25.10 Atherosclerotic heart disease of native coronary artery without angina pectoris (principal)

== ENCOUNTER 2020-08-31 09:09 | Observation (INO) | payer MEDICARE ==
[~2020-08-31] VITALS: Ht 149.9 cm; Wt 62.7 kg
--- NOTE | ~2020-08-31 | HEMODYNAMI ---
PATIENT:BARNEY KAUFMAN MEDICAL RECORD: [id number] : 53 LOCATION:[facility] D.2125 ADMISSION DATE: 08/31/20 Generatedon:114:00 Patient name: BARNEY KAUFMAN Patient #: [id number] SSN: [id number] : 1955 Date of study: 09/01/2020 Page: Of Hemodynamic Procedure Report Patient Data Patient Demographics Procedure consent was obtained First Name: BARNEY Gender: Female Last Name: MNADEEP : 1955 [facility] Initial: HOLLY Age: 65 year(s) Patient #: [id number] Race: SSN: [id number] Additional ID: [id number] Contact details [address]: [address] [place] [address] State: [place] City: [place] Zip code: [address] Past Medical History Allergies Allergen Reaction Date Comments Reported Sulfa drugs 03/22/2016 Other allergy 07/10/2017 Sulfa, PCN Other allergy 09/11/2019 PCN, SULFA, BACTRIM, CIPRO Penicillins 09/01/2020 Admission Admission Data Admission Date: 08/31/2020 Admission Time: 15:38 Admit Source: Other Room #: 2125 Procedure Procedure Types Cath Procedure Diagnostic Procedure [facility] w/Coronaries Procedure Description Procedure Date Procedure Date: 09/01/2020 Procedure Start Time: 13:42 Procedure End Time: 13:55 Procedure Staff Name Function Edouard Ulloa MD Performing Physician Meagan Plunkett RT Monitor Jackelyn Chavez RN Nurse Bonnie Mitchell RT Scrub Procedure Data Cath Procedure Fluoroscopy Diagnostic fluoroscopy Total fluoroscopy Time: 1.2 time: 1.2 min min Diagnostic fluoroscopy Total fluoroscopy dose: 265 dose: 265 mGy mGy Contrast Material Contrast Material Type Amount (ml) Isovue 370 58 Entry Location Entry Primary Successful Side Size Upsize Upsize Entry Closure Succes sful Closure Location (Fr) 1 (Fr) 2 (Fr) Remarks Device Remarks Femoral Right 5 Fr Exoseal artery Estimated blood loss: 5 ml Diagnostic catheters Device Type Used For End Catheter Placement MULTIPACK JL 4.0 5Fr Left Coronary catheter Angiography MULTIPACK 3DRC 5Fr Right Coronary catheter Angiography MULTIPACK Pigtail 5 Fr LV Angiography catheter Procedure Complications No complications Procedure Medications Medication Administration Route Dosage 0.9% NaCl I.V. 100 ml/hr Heparin Flush Bag added to field 2 bags (1000units/500ml NS) Lidocaine 2% added to field 20 Oxygen NC 3 l/min Versed I.V. 0.5 mg Fentanyl I.V. 25 mcg Hemodynamics Rest Heart Rate: 69 (bpm) Pressure Samples Time Site Value (mmHg) Purpose Heart Use Rate(bpm) 13:49 LV 105/5,6 Snapshot 75 Snapshots Pre Cath Intra NCS Post Cath Vital Signs Time Heart Resp SPO2 etCO2 NIBP Rhythm Pain Sedation Rate (ipm) (%) (mmHg) (mmHg) Status Level (bpm) 13:21:38 68 18 96 32.7 107/69(87) NSR 0 (11) 10(A) , No pain 13:25:43 70 18 95 28.2 101/64(77) NSR 0 (11) 10(A) , No pain 13:37:10 71 17 95 22.3 92/72(85) NSR 0 (11) 10(A) , No pain 13:41:11 73 16 96 25.3 104/67(86) NSR 0 (11) 10(A) , No pain 13:45:19 73 13 96 16.3 109/64(78) NSR 0 (11) 9(A) , No pain 13:49:27 75 11 96 31.9 105/68(84) NSR 0 (11) 9(A) , No pain 13:53:33 75 11 95 32 102/65(83) NSR 0 (11) 9(A) , No pain 13:57:38 73 10 95 32.7 95/63(77) NSR 0 (11) 10(A) , No pain Medications Time Medication Route Dose Verified Delivered Reason Notes Effe ctiveness by by 13:40:30 0.9% NaCl I.V. 100 Edouard Jackelyn used for ml/hr [facility] procedure MD GUERRA 13:40:40 Heparin Flush added 2 Edouard Jackelyn used for Bag to bags [facility] procedure (1000units/500ml field MD GUERRA NS) 13:40:52 Lidocaine 2% added 20ml Edouard Hayden for local to vial [place] [facility] anesthetic field MD GUERRA 13:41:01 Oxygen NC 3 Edouard Jackelyn for low 02 l/min [place] sats MD GUERRA 13:43:09 Versed I.V. 0.5 Edouard Hayden for mg Artemio Kathy sedation MD GUERRA 13:43:17 Fentanyl I.V. 25 Edouard Hayden for mcg [place] sedation MD GUERRAstone fabricator Log Time Note 13:06:01 Meagan Counts RT(R) sent for patient. Start room use. 13:06:01 Time tracking: Regular hours (M-F 7:00 - 5:00) 13:06:06 Plan of Care:Hemodynamics will remain stable., Cardiac rhythm will remain stable., Comfort level will be maintained., Respiratory function will remain adequate., Patient/ family verbilizes understanding of procedure., Procedure tolerated without complication., Recovers from procedure without complications.. 13:14:24 Procedure Status Urgent Heart Cath (IP). 13:14:26 Admit Source: Other 13:14:28 ACC Patient presents with Unstable Angina CCS Anginal Class 2--Slight limitation of ordinary activity. 13:14:39 Patient received from Med II to [facility] 2 Alert and oriented. Tansferred to table in Supine position. 13:14:43 Signed procedure consent form obtained from patient. 13:14:44 Warm blankets applied, and césar hugger turned on for patient comfort. 13:14:44 Correct patient and procedure confirmed by team. 13:14:45 ECG and BP/O2 sat monitors applied to patient. 13:14:47 Full Disclosure recording started 13:14:49 Family unavailable. 13:14:51 Patient NPO since Midnight. 13:20:33 Vital chart was started 13:22:28 Baseline sample Acquired. 13:22:31 Rhythm: sinus rhythm 13:23:37 H&P Date Dictated: 08/31/2020 Within 30 days and on chart.. 13:23:39 Pre-procedure instructions explained to patient. 13:23:40 Pre-op teaching completed and patient verbalized understanding. 13:29:23 Patient allergic to Penicillins 13:29:52 Is the patient allergic to Iodine/contrast media? No. 13:29:53 Is patient on blood thinner?No 13:29:59 ACC The patient was administered the following blood thiners within the last 24 hours: None 13:30:05 Bleeding risk 1.3%. 13:30:08 Patient diabetic? Yes. 13:30:09 If diabetic: On Metformin? Yes 13:30:12 If on Metformin: Last Dose? 09/01/2020 13:30:17 Previous problem with sedation/anesthesia? No ? 13:30:18 Snore? Yes 13:30:19 Sleep apnea? No 13:30:20 Deviated septum? No 13:30:21 Opens mouth fully? Yes 13:30:21 Sticks out tongue? Yes 13:30:23 Airway obstruction? No ? 13:30:27 Dentures? Yes In 13:30:30 Pre procedure: right dorsailis pedis pulse 2+ Normal; easily identifiable; not easily obliterated 13:30:33 Patient pain scale 0/10 ?. 13:30:52 IV left forearm D/C'd due to infiltration. 13:37:16 IV started by Jackelyn Chavez RN inleft hand with a 22 gauge IV catheter with 0.9% NaCl at O. 13:37:35 Lab results completed and on chart. 13:37:42 Risk of Mortality: 0.9 13:37:45 Risk of blood transfusion: 1.3 13:37:48 Risk of CASSANDRA: 5.1 13:37:51 Right groin area was prepped with chlora-prep and draped in sterile fashion 13:37:52 Alarms reviewed by R. N. 13:37:52 Sharps counted by scrub and verified by R.N. 13:37:58 Physician arrived 13:38:01 Use device set Femoral Dx 13:38:02 ACIST Syringe (74813) opened to sterile field. 13:38:02 Bag Decanter (2002) opened to sterile field. 13:38:03 Medline Cath Pack ([id number]) opened to sterile field. 13:38:05 ACIST Hand Control (68441) opened to sterile field. 13:38:06 ACIST Manifold (65750) opened to sterile field. 13:38:07 DIAGNOSTIC Multipack 5Fr catheter set (AI4681) opened to sterile field. 13:38:09 SHEATH 5FR [place] (JYG767) opened to sterile field. 13:38:09 EMERALD Guide Wire (171-632) opened to sterile field. 13:40:30 0.9% NaCl 100 ml/hr I.V. was administered by Jackelyn Chavez RN; used for procedure; Verbal order read back and verified. 13:40:40 Heparin Flush Bag (1000units/500ml NS) 2 bags added to field was administered by Jackelyn Chavez RN; used for procedure; Verbal order read back and verified. 13:40:52 Lidocaine 2% 20ml vial added to field was administered by Jackelyn Chavez RN; for local anesthetic; Verbal order read back and verified. 13:41:01 Oxygen 3 l/min NC was administered by Jackelyn Chavez RN; for low 02 sats; Verbal order read back and verified. 13:41:32 Final Timeout: patient, procedure, and site verified with staff and physician. All members of the team are in agreement. 13:41:34 Right groin site verified by team. 13:41:37 Fire Safety Assessment: A--An alcohol-based skin anteseptic being used preoperatively., C--Open oxygen or nitrous oxide is being used., D--An ESU, laser, or fiber-optic light is being used. 13:41:41 Physical assessment completed. ASA score P 2 - A patient with mild systemic disease as per Edouard Ulloa MD. 13:41:46 3b) 30-44 Moderately reduced kidney function. 13:41:50 Maximum allowable contrast dose (3.7 X eGFR X 0.75)120 ml. 13:41:54 Sedation plan: IV Moderate Sedation Medication:Versed, Fentanyl 13:42:54 Procedure started. 13:42:58 Local anesthetic to right femoral artery with Lidocaine 2% by Edouard Ulloa MD.INITIAL ACCESS ONLY 13:43:09 Versed 0.5 mg I.V. was administered by Jackelyn Chavez RN; for sedation; Verbal order read back and verified. 13:43:17 Fentanyl 25 mcg I.V. was administered by Jackelyn Chavez RN; for sedation; Verbal order read back and verified. 13:44:20 IV CATHETER 22g opened to sterile field. 13:44:20 IV CATHETER 22g opened to sterile field. 13:44:21 STOPCOCK 3-Way Large Bore ([id number]) opened to sterile field. 13:44:32 A 5 Fr sheath was inserted into the Right Femoral artery 13:44:39 A MULTIPACK JL 4.0 5Fr catheter was advanced over the wire and used for Left Coronary Angiography. 13:45:47 Catheter removed. 13:45:50 Zero performed for pressure channel P1 13:46:28 A MULTIPACK 3DRC 5Fr catheter was advanced over the wire and used for Right Coronary Angiography. 13:47:25 Catheter removed. 13:48:10 A MULTIPACK Pigtail 5 Fr catheter was advanced over the wire and used for LV Angiography. 13:49:13 LV gram done using MCCULLOUGH 13:49:14 LV hemodynamics recorded. 13:49:16 Injector settings: Ml/sec: 10, Volume: 20, 13:49:25 EF : 55 % 13:49:27 Catheter removed. 13:49:29 Tegaderm 4 x 4 (1626W) opened to sterile field. 13:49:29 EXOSEAL 5Fr (EX500) opened to sterile field. 13:49:43 Sheath removed intact; hemostasis achieved with Exoseal to the Right Femoral artery. 13:49:45 Procedure ended.(Physican Out) 13:50:02 Fluoroscopy time 01.20 minutes. 13:50:10 Fluoroscopy dose: 265 mGy 13:50:10 Flurop Dose total: 265 13:50:15 Dose Area Product 29.1 mGy/cm. 13:50:20 Contrast amount:Isovue 370 58ml. 13:50:25 Maximum allowable dose exceeded? No. 13:50:26 Sharps counted by scrub and verified by R.N. 13:50:30 Insertion/operative site no bleeding no hematoma. 13:50:33 Post-op/insertion site Right Femoral artery dressed using a 4 x 4 and Tegaderm. 13:50:37 Post right femoral artery:stable, clean and dry 13:50:39 Post Procedure Pulses reassessed and unchanged 13:50:42 Post-procedure physical assessment completed. ASA score P 2 - A patient with mild systemic disease as per Edouard Ulloa MD. 13:50:44 Post procedure rhythm: unchanged. 13:51:00 Estimated blood loss: 5 ml 13:51:01 Post procedure instruction explained to patient.Patient verbalizes understanding. 13:51:02 Patient needs reinforcement of post procedure teaching. 13:52:52 Procedure Complication : No complications 13:53:45 Operative report dictated upon procedure completion. 13:53:45 See physician's report for complete and final results. 13:54:05 Report given to PCU. 13:54:11 Patient transfered to PCU with Bed. 13:54:26 Procedure and supply charges have been captured, reviewed, submitted and are correct. 13:55:08 Procedure ended. 13:55:08 Full Disclosure recording stopped 13:56:20 Meagan Counts RT(R) was relieved by Meagan Counts RT(R) as monitoring person 13:59:49 Meagan Counts RT(R) was relieved by Meagan Counts RT(R) as monitoring person 14:00:23 Vital chart was stopped Device Usage Item Name Manufacture Quantity Catalog Hospital Part Current Minimal Lot# / Number Charge Number Stock Stock Serial# Code ACIST Acist 1 11902 914473 335172 [id number] 20 Syringe Medical (76408) Systems Inc Bag Microtek 1 2001S 153980 09178 161379 5 Decanter Medical Inc. () Medline Medline 1 [id number] 857154 11673 497672 5 Cath Pack ([id number]) ACIST Hand Acist 1 82652 154465 677948 730063 5 Control Medical (10745) Systems Inc ACIST Acist 1 40718 699812 392267 511165 5 Manifold Medical (56091) Systems Inc DIAGNOSTIC Cardinal 1 OF3470 220061 81294 477285 30 Multipack Health 5Fr catheter set (RH7795) SHEATH 5FR Terumo 1 TMY417 802852 356243 930830 5 [place] (EDY716) EMERALD Cardinal 1 220-846 164782 438636 571244 5 Guide Wire Health (329-977) IV CATHETER B. Mendez 2 4369841-02 911578 092209 519348 5 22g STOPCOCK Cook Medical 1 P28277 622091 1571 060161 5 3-Way Large Bore (C24097) MULTIPACK Cardinal 1 310525 5 JL 4.0 5Fr Health catheter MULTIPACK Cardinal 1 124527 5 3DRC 5Fr Health catheter MULTIPACK Cardinal 1 475740 5 Pigtail 5 Health Fr catheter Tegaderm 4 3M 1 1626W 900484 928913 515170 5 x 4 (1626W) EXOSEAL 5Fr Cardinal 1 EX500 181866 361041 028393 10 (EX500) Health Signature Audit [place] Stage Time Signature Unsigned Intra-Procedure 09/01/2020 Jackelyn 1:56:08 PM Kathy RN Intra-Procedure 09/01/2020 Meagan 1:57:01 PM Counts RT(R) Intra-Procedure 09/01/2020 Edouard Townsend 2:00:21 PM Felipe DANGELO Signatures Performing Physician : Signature : Edouard Ulloa MD Date : Time : Monitor : Meagan Signature : Counts RT Date : Time : Nurse : Jackelyn Signature : Kathy RN Date : Time : [address] [id number]
[2020-08-31 09:28] VITALS: BP 110/62
[2020-08-31 09:28] LABS: BASOPHILS 0.5 % (0-2); EOSINOPHILS 3.2 % (0-7); HEMOGLOBIN 12.9 g/dL (12-16); IMMATURE GRANULOCYTES 1.1 % (0-5); LYMPHOCYTE ABS# 4.02 10x3/uL (1.18-3.74); LYMPHOCYTES 45.6 % (15-50); MCH 26.1 pg (26.0-34.0); MCHC 33.1 g/dL (31.0-37.0); MCV 78.8 fL (80.0-100.0); MEAN PLATELET VOLUME 9.5 fL (7.4-10.4); MONOCYTES 8.3 % (2-11); NEUTROPHIL ABS# 3.65 10x3/uL (1.56-6.13); NEUTROPHILS 41.3 % (40-80); PLATELET COUNT 190 10x3/uL (130-400); RBC 4.95 10x6/uL (4.00-5.40); RDW 13.7 % (11.5-14.5); WBC 8.8 10x3/uL (4.8-10.8)
[2020-08-31 10:09] LABS: CALC OSMOLALITY 284 mosm/kg (275-300); CALCIUM 9.3 mg/dL (8.5-10.1); CARBON DIOXIDE 24.8 mmol/L (21.0-32.0); CHLORIDE - SERUM 106 mmol/L (98-107); CREATININE - SERUM 0.8 mg/dL (0.6-1.3); GLUCOSE 114 mg/dL (74-106); POTASSIUM - SERUM 3.5 mmol/L (3.5-5.1); SODIUM 141 mmol/L (136-145); UREA NITROGEN 20 mg/dL (7-18); eGFR NON AFRICAN AMERICAN 76 mL/min (90-120)
[2020-08-31 10:18] LABS: ALBUMIN 3.6 g/dL (3.4-5.0); ALKALINE PHOSPHATASE 76 U/L (30-120); ALT (SGPT) 22 U/L (10-68); BILIRUBIN - TOTAL 0.25 mg/dL (0.2-1.3); PROTEIN - SERUM 6.8 g/dL (6.4-8.2); TROPONIN-I < 0.017 ng/mL (0.000-0.060)
[2020-08-31 10:33] LABS: APTT 20.6 SECONDS (22.8-39.4); INR 1.01 (0.85-1.17); PROTIME 12.3 SECONDS (11.6-15.0)
--- NOTE | 2020-08-31 15:53 | NUR ---
REPORT CALLED TO REHAN ON M2
--- NOTE | 2020-08-31 16:10 | NUR ---
RECEIVED PATIENT TO ROOM 2125 VIA GERNERY FROM ED. PATIENT ALERT/ORIENTED/AMBUALTORY. TELEMETRY APPLIED. PRIVATE EYE ASSISTING WITH ADMISSION PROCESS. PATIENT ORIENTED TO ROOM, CALL LIGHT PLACED WITHIN REACH. PATIENT IS ON ROOM AIR. NO DISTRESS. ICE WATER PROVIDED AND DINNER ORDERED FOR PM MEAL. NO DISTRESS.
[2020-08-31] MEDS ORDERED: LEVOTHYROXINE50 MCG PO (16:20)
--- NOTE | 2020-08-31 16:20 | NUR ---
ECG COMPLETE AND PLACED ON CHART.
[2020-08-31] MEDS ORDERED: PEPCID AC20 MG PO (16:23)
[2020-08-31] MEDS ORDERED: TRAZODONE HCL50 MG PO (16:24)
[2020-08-31 16:27] VITALS: BP 110/62; Ht 149.9 cm; Wt 62.7 kg
--- NOTE | 2020-08-31 17:08 | NUR ---
SCDS APPLIED TO BILATERAL LOWER EXTREMITIES FOR PREVENTION OF DVT.
[2020-08-31 17:09] LABS: CKMB 0.7 U/L (0.0-3.6); CREATINE KINASE 26 UL (21-215); TROPONIN-I < 0.017 ng/mL (0.000-0.060)
[2020-08-31] MEDS ORDERED: VERELAN120 MG PO (20:53)
--- NOTE | 2020-08-31 21:00 | NUR ---
PT C/O PAIN, ASKING FOR MEDICATION, PAGE OUT TO DR SAMANO OFFICE FOR COTTAGE CHEESE MAKER PHYSICAIN TO CALL ME BACK.
[2020-08-31 22:07] LABS: CKMB 0.6 U/L (0.0-3.6); CREATINE KINASE 27 UL (21-215)
[2020-08-31 22:08] LABS: TROPONIN-I < 0.017 ng/mL (0.000-0.060)
[2020-08-31 22:25] VITALS: BP 106/61
[2020-09-01] VITALS: BP 111/59
--- NOTE | 2020-09-01 04:17 | NUR ---
I have reviewed this patient and I concur with the Shift Assessment completed by the Licensed Practical Nurse today this shift.
[2020-09-01 07:25] LABS: CKMB 0.6 U/L (0.0-3.6); CREATINE KINASE 25 UL (21-215)
[2020-09-01 07:26] LABS: TROPONIN-I < 0.017 ng/mL (0.000-0.060)
[2020-09-01 08:00] VITALS: BP 102/61
[2020-09-01 10:12] LABS: BASOPHILS 0.4 % (0-2); EOSINOPHILS 3.6 % (0-7); HEMATOCRIT 39.6 % (36.0-48.0); IMMATURE GRANULOCYTES 1.5 % (0-5); LYMPHOCYTES 40.3 % (15-50); MCH 26.4 pg (26.0-34.0); MCHC 32.8 g/dL (31.0-37.0); MCV 80.3 fL (80.0-100.0); MEAN PLATELET VOLUME 9.2 fL (7.4-10.4); MONOCYTES 8.2 % (2-11); NEUTROPHIL ABS# 4.33 10x3/uL (1.56-6.13); RBC 4.93 10x6/uL (4.00-5.40); RDW 13.8 % (11.5-14.5); WBC 9.4 10x3/uL (4.8-10.8)
[2020-09-01 10:15] LABS: PLATELET COUNT 268 10x3/uL (130-400)
[2020-09-01 10:22] LABS: ANION GAP 18.1 mmol/L (8-16); CALCIUM 9.2 mg/dL (8.5-10.1); CARBON DIOXIDE 21.7 mmol/L (21.0-32.0); CHOL - HDL RATIO 2.8 ratio (2.3-4.1); CREATININE - SERUM 1.3 mg/dL (0.6-1.3); LDL-HDL RATIO 1.3 ratio (1.5-3.5); POTASSIUM - SERUM 3.8 mmol/L (3.5-5.1)
[2020-09-01 11:30] VITALS: BP 97/50
--- NOTE | 2020-09-01 13:14 | NUR ---
PRE-OPS GIVEN. TO SUPPLIER SPECIALIST BY BED.
--- NOTE | 2020-09-01 14:10 | CN ---
PATIENT NAME:BARNEY KAUFMAN MEDICAL RECORD: [id number] : 53 LOCATION:D. D.2125 ADMIT DATE: 08/31/20 ACCOUNT: [id number] CONSULTING PHYSICIAN: SIMÓN JUAREZ MD REFERRING PHYSICIAN: YOU CLOLIER MD DATE OF CONSULTATION: 09/01/2020 HISTORY OF PRESENT ILLNESS: A 65-year-old female with known history of coronary artery disease, status post intervention, admitted with angina, acute coronary syndrome with risk symptomology. Symptomology has been progressing however since the first year, actually underwent Cardiolite stress testing which was normal. Typically maintained on a combination of nitrates, beta-valdemar. Given the continued symptomatology and onset of rest symptom going for a diagnostic angiography. PAST MEDICAL HISTORY: Includes; 1. History of hypertension. 2. Hyperlipidemia. 3. Diabetes mellitus. SOCIAL HISTORY: Nonsmoker, nondrinker. Still works full at time of the [employer]. Easily takes care of her ADLs. ALLERGIES: PENICILLIN AND SULFA. MEDICATIONS: Include Plavix 75 every day, pravastatin 80 mg p.o. every day, verapamil 120 every day, Celexa 40 every day, Topamax 50 at bedtime, trazodone 50 at bedtime, Synthroid 50 mcg daily, metformin 1/2 gram b.i.d. REVIEW OF SYSTEMS: The patient reports easy bruising but reports no swollen glands. The patient reports no fever, no night sweats, no significant weight gain, no significant weight loss. No significant exercise tolerance. The patient reports no dry eyes, no irritation, no vision change. Patient reports no difficulty hearing and no ear pain. Patient reports no frequent nose bleeds or nose and sinus problems. Patient reports on arm pain on exertion. No shortness of breath while lying down. No history of heart murmur. Patient reports no cough, no wheezing or coughing up blood. Patient reports no abdominal pain, no vomiting. Normal appetite. No diarrhea and not vomiting blood. No nausea and no constipation. Patient reports no incontinence. No difficulty urinating. No hematuria. No increased frequency. Patient reports no muscle aches. No weakness, no arthralgias, no back pain. No swelling of the extremities. Patient reports no abnormal mole, no jaundice, no rashes. Reports no loss of consciousness. No weakness and no numbness. No seizures, dizziness, or headaches. The patient reports no depression, no sleep disturbance, feeling safe in a relationship and no alcohol abuse. Patient reports on fatigue. Reports no runny nose or sinus pressure. No itching, no hives, and no frequent sneezing. PHYSICAL EXAMINATION: GENERAL: Well-developed in no acute distress, appears stated age. VITAL SIGNS: Blood pressure 102/61, pulse 71 and regular. HEENT: Normocephalic, atraumatic. NECK: No JVD or bruit. HEART: Regular. A II/ systolic ejection murmur. LUNGS: Good air excursion. CONSULT REPORT [id number] BARNEY KAUFMAN ABDOMEN: Soft and nontender. EXTREMITIES: Pulses 2+. No edema. DIAGNOSTIC DATA: EKG shows minor nonspecific ST-T changes inferolaterally. IMPRESSION AND PLAN: Acute coronary syndrome, already on max therapy. We will plan for angiography, intervention based on the above. TRANSINT:[id number] Voice Confirmation ID: [id number] DOCUMENT ID: [id number] SIMÓN JUAREZ MD at 1410 CC: [id number] DICTATION DATE: 09/01/20 0858 COMMUTATOR ASSEMBLER: 09/01/20 1221 ADM IN [facility] [address] [place] [address]
--- NOTE | 2020-09-01 14:20 | NUR ---
BACK FROM [employer]IONAL DRIVER. VS WNL. RIGHT GROIN STABLE WITHOUT BLEEDING OR HEMATOMA NOTED. WILL MONITOR.
[2020-09-01 15:00] VITALS: BP 91/59
--- NOTE | 2020-09-01 16:04 | NUR ---
BED REST UP GROIN STABLE.
--- NOTE | 2020-09-01 17:33 | NUR ---
BED REST UP. GROIN STABLE. IV AND TELEMETRY DCD. DC PLANS GIVEN. UNDERSTANDING VOIOCED. ESCORTED TO CAR BY W/C.
--- NOTE | 2020-09-02 13:38 | OP ---
PATIENT NAME: BARNEY KAUFMAN MEDICAL RECORD: [id number] :53 LOCATION:D.M2 D.2125 ADMISSION DATE:08/31/20 SURGEON: SIMÓN JUAREZ MD DATE OF OPERATION: 09/01/2020 PROCEDURE: Left heart catheterization, selective coronary angiography, right femoral artery approach. CATHETERS: A 5-Khmer sheath, 5/4 left and right Can, 5/4 pig. The procedure was well tolerated. The patient was returned to the campos. Sheath removed. ExoSeal device was placed. FINDINGS: Left ventriculography in 30-degree MCCULLOUGH view; normal wall motion and normal systolic function. CORONARY ANATOMY: LEFT MAIN: Left main is free of disease. There is LAD stent that is widely patent. No evidence of restenosis. No progression of little traverse disease. Diagonal stent is patent as well. CIRCUMFLEX: Moderate sized circumflex, free of disease. RIGHT CORONARY ARTERY: This is a codominant system, free of disease. IMPRESSION: Normal left ventricular systolic function, widely patent stents. No progression of little traverse disease. TRANSINT:[id number] Voice Confirmation ID: [id number] DOCUMENT ID: [id number] SIMÓN JUAREZ MD at 1338 CC: [id number] DICTATION DATE: 09/01/20 1404 HARDWOOD FLOORING SPECIALIST: 09/01/20 1618 DIS IN 09/01/20 [facility] [address] [place] [address]
== END 2020-09-01 17:34 | disposition home or self-care (01) ==
LOC: D.ER 09:09 → D.M2 15:38 → OBSVTIME 15:38 → D.M2 15:38
PROVIDERS: Emergency Medicine; Internal Medicine Interventional Cardiology; ADMIT Family Medicine; ATTEND Family Medicine
DX: R07.9 Chest pain, unspecified (principal); I10 Essential (primary) hypertension; K21.9 Gastro-esophageal reflux disease without esophagitis; I25.10 Atherosclerotic heart disease of native coronary artery without angina pectoris; E78.5 Hyperlipidemia, unspecified; E11.9 Type 2 diabetes mellitus without complications; Z79.84 Long term (current) use of oral hypoglycemic drugs

== ENCOUNTER 2020-10-01 19:42 | Inpatient (IN) | payer MEDICARE ==
[~2020-10-01] VITALS: Ht 149.9 cm; Wt 60.7 kg
[~2020-10-01 19:42] MED LIST changes: +LEVOTHYROXINE50 MCG PO; +PEPCID AC20 MG PO; +TRAZODONE HCL50 MG PO; +VERELAN120 MG PO
[2020-10-01 20:08] VITALS: BP 133/83
[2020-10-01 20:12] LABS: BASOPHILS 0.3 % (0-2); EOSINOPHILS 1.4 % (0-7); HEMATOCRIT 43.5 % (36.0-48.0); LYMPHOCYTES 8.9 % (15-50); MCH 25.2 pg (26.0-34.0); MCHC 32.2 g/dL (31.0-37.0); MCV 78.1 fL (80.0-100.0); MONOCYTES 4.6 % (2-11); NEUTROPHILS 84.8 % (40-80); PLATELET COUNT 296 10x3/uL (130-400); RBC 5.56 10x6/uL (4.00-5.40); RDW 14.2 % (11.5-14.5); WBC 11.2 10x3/uL (4.8-10.8)
[2020-10-01 20:19] LABS: INR 0.99 (0.85-1.17); PROTIME 12.1 SECONDS (11.6-15.0)
[2020-10-01 20:25] LABS: CALC OSMOLALITY 289 mosm/kg (275-300); CALCIUM 9.1 mg/dL (8.5-10.1); CARBON DIOXIDE 25.8 mmol/L (21.0-32.0); CHLORIDE - SERUM 106 mmol/L (98-107); CREATININE - SERUM 0.9 mg/dL (0.6-1.3); GLUCOSE 136 mg/dL (74-106); POTASSIUM - SERUM 3.6 mmol/L (3.5-5.1); SODIUM 144 mmol/L (136-145); UREA NITROGEN 15 mg/dL (7-18); eGFR NON AFRICAN AMERICAN 66 mL/min (90-120)
[2020-10-01 20:41] LABS: ALKALINE PHOSPHATASE 79 U/L (30-120); ALT (SGPT) 24 U/L (10-68); CKMB 0.5 U/L (0.0-3.6); CREATINE KINASE 42 UL (21-215); MAGNESIUM - SERUM 2.1 mg/dL (1.8-2.4); PROTEIN - SERUM 7.7 g/dL (6.4-8.2)
[2020-10-01 20:42] LABS: TROPONIN-I < 0.017 ng/mL (0.000-0.060)
[2020-10-01 21:00] VITALS: BP 134/79
[2020-10-01 22:00] VITALS: BP 128/59
[2020-10-01 23:00] VITALS: BP 140/57
[2020-10-01 23:59] LABS: BILIRUBIN NEGATIVE (NEGATIVE); KETONE NEGATIVE (NEGATIVE); NITRITE NEGATIVE (NEGATIVE); UROBILINOGEN NORMAL mg/dL (< 2)
[2020-10-02] LABS: BACTERIA FEW HPF (NONE SEEN); SQUAMOUS EPITHELIAL 0-5 HPF (0-4); WHITE CELLS - URINE 0-5 HPF (0-4)
[2020-10-02] MEDS ORDERED: PROZAC10 MG PO (01:12)
[2020-10-02 01:17] VITALS: BMI 27.5
[2020-10-02 05:28] VITALS: BP 102/57
[2020-10-02 06:50] LABS: BASOPHILS 0.4 % (0-2); EOSINOPHILS 1.5 % (0-7); HEMOGLOBIN 11.2 g/dL (12-16); LYMPHOCYTES 17.8 % (15-50); MCH 26.5 pg (26.0-34.0); MCHC 33.6 g/dL (31.0-37.0); MCV 78.8 fL (80.0-100.0); MEAN PLATELET VOLUME 7.6 fL (7.4-10.4); MONOCYTES 6.4 % (2-11); NEUTROPHILS 73.9 % (40-80); RDW 14.2 % (11.5-14.5)
[2020-10-02 06:52] LABS: ALKALINE PHOSPHATASE 57 U/L (30-120); BILIRUBIN - TOTAL 0.36 mg/dL (0.2-1.3); CALC OSMOLALITY 285 mosm/kg (275-300); CALCIUM 7.9 mg/dL (8.5-10.1); CARBON DIOXIDE 25.1 mmol/L (21.0-32.0); CHLORIDE - SERUM 110 mmol/L (98-107); CREATININE - SERUM 0.7 mg/dL (0.6-1.3); GLUCOSE 110 mg/dL (74-106); POTASSIUM - SERUM 3.5 mmol/L (3.5-5.1); PROTEIN - SERUM 5.9 g/dL (6.4-8.2); SODIUM 143 mmol/L (136-145); UREA NITROGEN 12 mg/dL (7-18); eGFR NON AFRICAN AMERICAN 89 mL/min (90-120)
[2020-10-02 06:53] LABS: HEMATOCRIT 33.5 % (36.0-48.0); PLATELET COUNT 209 10x3/uL (130-400); RBC 4.24 10x6/uL (4.00-5.40); WBC 5.9 10x3/uL (4.8-10.8)
[2020-10-02 06:59] LABS: ALT (SGPT) 17 U/L (10-68)
--- NOTE | 2020-10-02 07:22 | NUR ---
PT LYING IN BED WITH EYES CLOSED. RAISES TO VERBAL STIMULI. RESP EVEN AND UNLABORED. AAO X4. DENIES NEEDS AT THIS TIME. PT'S HOME MEDS SHE HAD IN PURSE COLLECTED, COUNTED, AND PHARMACY WAS NOTIFIED TO PICK THEM UP. CLIR. BED IN LOWEST POSITION. SIDE RAILS X2
[2020-10-02 09:00] VITALS: BP 108/51
[2020-10-02 12:00] VITALS: BP 97/53
[2020-10-02 13:47] VITALS: Ht 149.9 cm; Wt 60.7 kg
[2020-10-02 16:00] VITALS: BP 106/49
[2020-10-02 20:47] VITALS: BP 108/59
[2020-10-03 00:43] VITALS: BP 111/65
[2020-10-03 05:37] VITALS: BP 96/41
[2020-10-03 06:17] LABS: BASOPHILS 0.5 % (0-2); EOSINOPHILS 3.4 % (0-7); HEMATOCRIT 32.2 % (36.0-48.0); HEMOGLOBIN 10.8 g/dL (12-16); MCH 26.7 pg (26.0-34.0); MCHC 33.5 g/dL (31.0-37.0); MCV 79.6 fL (80.0-100.0); MEAN PLATELET VOLUME 7.3 fL (7.4-10.4); MONOCYTES 12.8 % (2-11); NEUTROPHILS 43.3 % (40-80); PLATELET COUNT 171 10x3/uL (130-400); RBC 4.04 10x6/uL (4.00-5.40); RDW 14.1 % (11.5-14.5)
[2020-10-03 06:34] LABS: AMYLASE - SERUM 46 U/L (25-115); CALC OSMOLALITY 287 mosm/kg (275-300); CALCIUM 7.8 mg/dL (8.5-10.1); CARBON DIOXIDE 25.3 mmol/L (21.0-32.0); CHLORIDE - SERUM 113 mmol/L (98-107); CREATININE - SERUM 0.7 mg/dL (0.6-1.3); GLUCOSE 94 mg/dL (74-106); LIPASE 107 U/L (73-393); POTASSIUM - SERUM 3.6 mmol/L (3.5-5.1); SODIUM 145 mmol/L (136-145); UREA NITROGEN 9 mg/dL (7-18); eGFR NON AFRICAN AMERICAN 89 mL/min (90-120)
[2020-10-03 06:54] LABS: WBC 3.1 10x3/uL (4.8-10.8)
[2020-10-03 09:17] VITALS: BP 124/68
--- NOTE | 2020-10-03 11:24 | HP ---
PATIENT: BARNEY KAUFMAN MEDICAL RECORD: [id number] ACCOUNT: [id number] LOCATION:[address] : 53 ADMISSION DATE: 10/01/20 PCP: RUIZ ALMANZAR MD HISTORY AND PHYSICAL EXAMINATION REASON FOR ADMISSION: Vomiting intractable. HISTORY OF PRESENT ILLNESS: The patient is a 65-year-old female with history of coronary artery disease. She was hospitalized in August of this year with normal coronary angiogram, stable stent. She had atypical chest pain then. Dr. Alejandro performed an EGD that showed multiple areas of gastric erosion and heater probe was used for one area that was bleeding. She was a little bit better since that time, but one of her family members developed vomiting yesterday and she developed and came home from work. She said she vomited 5 or 6 times green bile. She had a normal BM that morning. She denies fever or severe abdominal pain. PAST MEDICAL HISTORY: CAD plus multiple stents, remote CA, essential hypertension, remote seizure disorder, chronic depression, hypothyroidism, is positive for COVID 06/10/2020, GERD, hiatal hernia, osteoarthritis, postmenopausal post-hysterectomy, hypothyroidism, type 2 diabetes mellitus and migraine headaches. PAST SURGICAL HISTORY: Hysterectomy in , coronary stents. ALLERGIES: PENICILLIN CAUSES ANAPHYLAXIS, SULFA, CIPRO. FAMILY HISTORY: Noncontributory. SOCIAL HISTORY: She is a nonsmoker, nondrinker. She has 2 jobs. 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 HOME MEDICATIONS: Nitroglycerin 0.4 mg sublingual p.r.n. chest pain, Xanax 0.25 mg at bedtime, metformin ER one by mouth in the evening, levothyroxine 75 mcg p.o. q.a.m., famotidine 20 mg p.o. at bedtime, trazodone 50 mg 1-2 at bedtime for sleep, diltiazem 60 mg p.o. daily, aspirin 81 mg daily, pravastatin 80 mg at bedtime, clopidogrel 75 mg daily, Topamax 25 mg 2 tabs at night. REVIEW OF SYSTEMS: GENERAL: She has not felt well for the last month or so. Denies fever. HEENT: No recent visual change, sinus congestion, sore throat. Does wear glasses to read. RESPIRATORY: No SOB or cough. CARDIAC: Chest pain with vomiting, but has not had any recent exertional pain and negative cardiac catheterization in August of this year. GASTROINTESTINAL: She has had nausea with vomiting times 6 and it was bilious but no hematemesis, no melena. Had a normal stool yesterday morning. Denies abdominal pain. GENITOURINARY: No incontinence. Had recent UTI that was Klebsiella, treated with Augmentin and then resolved. NEUROLOGIC: No recent history of severe headaches or seizures. PSYCHIATRIC: Admits to chronic anxiety and stress due to her job functions. AIR BRUSH DECORATOR: No vaginal bleeding. PHYSICAL EXAMINATION: HISTORY AND PHYSICAL [id number] BARNEY KAUFMAN GENERAL: Alert 65-year-old female at this time. She feels moderately ill. Alert and oriented. VITAL SIGNS: Show a pulse of 104, respirations 24, blood pressure 140/57, satting 97% on room air, temperature is 98 degrees Fahrenheit orally. HEENT: Eyes: Sclerae anicteric. Oropharynx: Dry mucous membranes. NECK: Supple. LUNGS: Clear, without wheeze or rales. HEART: Tachycardic without murmur. ABDOMEN: Soft with hypoactive bowel sounds, nontender throughout. Healed infraumbilical scar noted. PELVIC: Deferred. EXTREMITIES: No CCE. NEUROLOGIC: Intact. PSYCHIATRIC: She is oriented times 3. LABORATORY DATA: Shows a white count of 11.2, with H&H of 14 and 43.5, slight left shift, 84 polys, 8.9 lymphocytes. Platelet count is normal at 296,000. BMP shows potassium of 3.5, BUN and creatinine 15 and 0.9, GFR slightly decreased at 66. Glucose is 136 nonfasting. Liver functions are normal. Cardiac enzymes are negative. Urine, 0-5 white and red cells, few bacteria. INR was 0.99. DIAGNOSTIC STUDIES: Chest x-ray was unremarkable. CT of the abdomen and pelvis showed mildly prominent loops of small bowel suspicious for small bowel ileus. ASSESSMENT: 1. Possible small-bowel obstruction. 2. Gastroenteritis with vomiting. 3. Coronary artery disease, stable. 4. Adult onset diabetes mellitus. 5. Hypothyroidism. PLAN: Keep on IV fluids, oral meds will be held currently except for essentials with sips of water. Serial abdominal series, surgical consult if indicated. TRANSINT:[id number] Voice Confirmation ID: [id number] DOCUMENT ID: [id number] RUIZ ALMANZAR MD at 1124 CC: [id number] DICTATION DATE: 10/02/20 0735 TAXI DRIVER: 10/02/20 1115 ADM IN [place] [id number] [place] [id number]
[2020-10-03 11:57] VITALS: BP 121/62
[2020-10-03 19:54] VITALS: BP 134/76
[2020-10-03 20:00] VITALS: BP 134/76
--- NOTE | 2020-10-03 20:00 | NUR ---
INITIAL ROUNDS AND ASSESSMENT COMPLETED. PT RESTING IN BED. NO DISTRESS. CALL LIGHT IN REACH.
[2020-10-04 04:00] VITALS: BP 117/64
--- NOTE | 2020-10-04 07:20 | NUR ---
RECIEVE REPORT. RESTING IN BED WITH EYES CLOSED. NO SIGNS OF DISTRESS. CONTINUE PLAN OF CARE AND SAFETY PRECAUTIONS.
--- NOTE | 2020-10-04 07:20 | NUR ---
RECIEVE REPORT. ALERT AND ORIENTED X4. SITTING UP IN BED. GEG TUBE FEEDINGS INFUSING ORDERED. WEST DRAINING BY GRAVITY. DENIES ANY NEEDS. CONTINUE PLAN OF CARE AND SAFETY PRECAUTIONS.
[2020-10-04 07:44] VITALS: BP 121/71
[2020-10-04] MEDS ORDERED: FLAGYL500 MG PO (11:43)
--- NOTE | 2020-10-04 13:20 | NUR ---
ALERT AND ORIENTED X4. SITTING UP IN BED. DC RT AC IV TIP INTACT. HOME MEDICATIONS FROM PHARMACY BROUGHT UP. PAPER SIGNED ON CHART. DISCHARGE INSTRUCTIONS GIVEN VERBALLY AND WRITTEN. DISCHARGE PAPERS SIGNED ON CHART. ESCORT TO RIDE VIA WHEELCHAIR. REMAINS FREE FROM INJURY.
--- NOTE | 2020-10-04 19:09 | MORECARE ---
CASE MANAGEMENT DISCHARGE SUMMARY PATIENT: BARNEY KAUFMAN UNIT: [id number] ADM DATE: 10/01/20 AGE: 65 : 53 SEX: F ROOM/BED: D.4230 AUTHOR: CHINO FARIAS PHYSICIAN: REFERRING PHYSICIAN: YOU COLLIER MD DATE OF SERVICE: 10/04/20 Case Management Discharge Planning Summary COMMENTS ENTERED DATE: 10/04/20 19:02 CT COMMENT TYPE: Discharge Planning REVIEWER: Luciano Bashir CM met with patient to complete DC plan and to evaluate needs. Patient lives independently with family and stated that her person to notify is her son, Fatuma Kaufman, . Patient stated that her home is safe and has electricity and running water. Patient stated that the home has several steps to enter and she is able to manage the steps without difficulty. Patient stated that she has no problems paying for medications and she fills her medications at [facility]. Patient stated that her primary care physician is Dr. Snow. At discharge, the patient plans to return home and feels this is a safe discharge. CM discussed availability of home health, rehab services, and medical equipment. Patient declined HHS, SNF, IPR, and DME. Patient voiced no other needs at this time and is satisfied with DC plan. Transportation provider at discharge will be with her son, Fatuma. DC IMM delivered, explained, signed by the patient, and placed in chart. Signed form also left with the patient. CM will continue to follow and will assist as needed with dc plans/needs. DCP REVIEW SUMMARY ANTICIPATED D/C DATE: 10/04/2020 EXPECTED LOS : 3 CASE STATUS: DCP Initiated INITIAL REVIEW: 10/01/2020 INITIAL REVIEWER: Luciano Bashir FINAL DISCHARGE DISPOSITION: : FINAL REVIEWER: FINAL REVIEW DATE: DCP Focus Questions & Answers DCP Evaluation QUESTION: ANSWER Patient gives permission to discuss discharge plans with: (name, relationship and number) : sonFatuma, Patient's ability to cope with chronic illness : d. No chronic illness Patient's current cognitive status: : *Oriented to person, place, situation, time and present Family / Caregiver's ability to cope with chronic illness: : a. Adequate (ability to meet patient's medical needs, ensures patient attends medical appts.) Patient and/or caregiver agree upon recommended discharge plan? : Yes Physical Status: : Independent with ADL's Family / Caregiver's ability to cope with chronic illness: : a. Adequate (ability to meet patient's medical needs, ensures patient attends medical appts.) Functional screen assessment: : Basic needs can adequately be met by self Does the patient have the ability to pay for or attain post discharge needs / services? : Yes Living Arrangements: : Home with Extended Family Is there a likelihood that the patient will require additional services to return to the preadmission environment? : No Equipment needed for post hospitalization: : None Baseline cognitive status: : *Oriented to person, place, situation, time and present Patient with capacity for self-care or can be cared for in same environment as prior to hospitalization? : Yes Physical environment modification needed / anticipated for discharge: : No Medication Management: : Patient states can afford medications Medication Management: : Patient states can read and understand medication labels Pharmacy name(s): : [facility] Does Patient have transportation to get home and to follow-up medical appointments when discharged from the hospital? : Yes Would patient like to participate in any Care Coordination programs (if applicable): : Not applicable Does the patient have electricity at home? : Yes Does the patient have running water in their house? : Yes Equipment in use: : None Mental health screen: : No mental health history DCP Re-evaluation QUESTION: ANSWER Would patient like to participate in any Care Coordination programs (if applicable): : Not applicable PATIENT: BARNEY KAUFMAN ENCOUNTER: [id number] MEDICAL RECORD#: [id number] ADMISSION DATE: 10/01/2020 DISCHARGE DATE: 10/04/2020 ATTENDING MD: YOU PLATT : AGE: 65 MARITAL STATUS: D DC PLAN ID: [id number] FACILITY: [facility] PRINTED ON: 10/04/20 19:09 CT All edits/amendments must be made on the electronic document DICTATION DATE: 10/04/201908 LAUNCH MANAGER: MIN 10/04/201908 RPT#: [id number] DC DATE:10/04/20 STATUS: DIS IN [facility] [address] [place] [address] END OF REPORT
--- NOTE | 2020-10-05 16:14 | MORECARE ---
CASE MANAGEMENT DISCHARGE SUMMARY PATIENT: BARNEY KAUFMAN UNIT: [id number] ADM DATE: 10/01/20 AGE: 65 : 53 SEX: F ROOM/BED: D.6658 AUTHOR: CHINO FARIAS PHYSICIAN: REFERRING PHYSICIAN: YOU COLLIER MD DATE OF SERVICE: 10/05/20 Case Management Discharge Planning Summary COMMENTS ENTERED DATE: 10/04/20 19:02 CT COMMENT TYPE: Discharge Planning REVIEWER: Luciano Bashir CM met with patient to complete DC plan and to evaluate needs. Patient lives independently with family and stated that her person to notify is her son, Fatuma Kaufman, . Patient stated that her home is safe and has electricity and running water. Patient stated that the home has several steps to enter and she is able to manage the steps without difficulty. Patient stated that she has no problems paying for medications and she fills her medications at [facility] [employer]. Patient stated that her primary care physician is Dr. Snow. At discharge, the patient plans to return home and feels this is a safe discharge. CM discussed availability of home health, rehab services, and medical equipment. Patient declined HHS, SNF, IPR, and DME. Patient voiced no other needs at this time and is satisfied with DC plan. Transportation provider at discharge will be with her son, Fatuma. DC IMM delivered, explained, signed by the patient, and placed in chart. Signed form also left with the patient. CM will continue to follow and will assist as needed with dc plans/needs. DCP REVIEW SUMMARY ANTICIPATED D/C DATE: 10/04/2020 EXPECTED LOS : 3 CASE STATUS: DCP Initiated INITIAL REVIEW: 10/01/2020 INITIAL REVIEWER: Luciano Bashir FINAL DISCHARGE DISPOSITION: : FINAL REVIEWER: FINAL REVIEW DATE: DCP Focus Questions & Answers DCP Evaluation QUESTION: ANSWER Patient and/or caregiver agree upon recommended discharge plan? : Yes Family / Caregiver's ability to cope with chronic illness: : a. Adequate (ability to meet patient's medical needs, ensures patient attends medical appts.) Patient's current cognitive status: : *Oriented to person, place, situation, time and present Patient's ability to cope with chronic illness : d. No chronic illness Patient gives permission to discuss discharge plans with: (name, relationship and number) : Fatuma hunter [phone] Does the patient have the ability to pay for or attain post discharge needs / services? : Yes Functional screen assessment: : Basic needs can adequately be met by self Family / Caregiver's ability to cope with chronic illness: : a. Adequate (ability to meet patient's medical needs, ensures patient attends medical appts.) Physical Status: : Independent with ADL's Equipment needed for post hospitalization: : None Is there a likelihood that the patient will require additional services to return to the preadmission environment? : No Living Arrangements: : Home with Extended Family Patient with capacity for self-care or can be cared for in same environment as prior to hospitalization? : Yes Baseline cognitive status: : *Oriented to person, place, situation, time and present Physical environment modification needed / anticipated for discharge: : No Medication Management: : Patient states can read and understand medication labels Medication Management: : Patient states can afford medications Pharmacy name(s): : [facility] [employer] Does Patient have transportation to get home and to follow-up medical appointments when discharged from the hospital? : Yes Would patient like to participate in any Care Coordination programs (if applicable): : Not applicable Does the patient have electricity at home? : Yes Does the patient have running water in their house? : Yes Equipment in use: : None Mental health screen: : No mental health history DCP Re-evaluation QUESTION: ANSWER Would patient like to participate in any Care Coordination programs (if applicable): : Not applicable PATIENT: BARNEY KAUFMAN ENCOUNTER: [id number] MEDICAL RECORD#: [id number] ADMISSION DATE: 10/01/2020 DISCHARGE DATE: 10/04/2020 ATTENDING MD: YOU PLATT : AGE: 65 MARITAL STATUS: D DC PLAN ID: [id number] FACILITY: [facility] PRINTED ON: 10/05/20 16:14 CT All edits/amendments must be made on the electronic document DICTATION DATE: 10/05/201613 TRAILER DRIVER: MIN 10/05/201613 RPT#: [id number] DC DATE:10/04/20 STATUS: DIS IN [facility] [address] [place] [address] END OF REPORT
== END 2020-10-04 13:23 | disposition home or self-care (01) | DRG 392 ==
LOC: D.ER 19:42 → D.M2 22:39
PROVIDERS: Emergency Medicine; Family Medicine; ADMIT Family Medicine; ATTEND Family Medicine
DX: A08.4 Viral intestinal infection, unspecified (principal); K56.7 Ileus, unspecified; I25.10 Atherosclerotic heart disease of native coronary artery without angina pectoris; E11.9 Type 2 diabetes mellitus without complications; E03.9 Hypothyroidism, unspecified; Z79.84 Long term (current) use of oral hypoglycemic drugs; K21.9 Gastro-esophageal reflux disease without esophagitis; M19.90 Unspecified osteoarthritis, unspecified site; F32.9 Major depressive disorder, single episode, unspecified